=== PATIENT | female | born 1980 | race Hispanic/Latino ===

== ENCOUNTER 2016-11-20 15:55 | Emergency (ER) | payer BC ==
[2016-11-20 17:05] LABS: #Eosinphils 0.4 thou/uL (0.0-0.7); #Lymphocytes 0.4 thou/uL (1.20-3.40); #Monocytes 0.2 thou/uL (0.11-0.59); #Neutrophils 0.8 thou/uL (1.40-6.50); %Basophils 1.6 % (0.0-1.0); %Eosinophils 22.9 % (0.0-10.0); %Lymphocytes 23.6 % (21.0-51.0); %Monocytes 9.9 % (0.0-10.0); Anisocytosis SLIGHT = 6-15 cells (100X) (0-5/hpf); Hematocrit 31.5 % (36.0-47.0); Mean Platelet Volume 9.9 fL (7.4-10.4); Ovalocytes SLIGHT = 2-5 cells (100X) (0-1/hpf); Red Blood Cell (RBC) Count 3.58 mill/uL (4.20-5.40); White Blood Cell (WBC) Count 1.9 thou/uL (4.8-10.8)
[2016-11-20 17:07] LABS: ALT (SGPT) 45 U/L (8-55); AST (SGOT) 112 U/L (5-34); Alkaline Phosphatase 124 U/L (40-150); Anion Gap 12 mmol/L (10-20); BUN (Urea Nitrogen) 12 mg/dL (7.0-18.7); Bilirubin, Total 0.5 mg/dL (0.2-1.2); Calc. Creatinine Clearance 0 mL/min (70-130); Calcium 8.3 mg/dL (7.8-10.44); Carbon Dioxide 24 mmol/L (22-29); Chloride 106 mmol/L (98-107); Estimated GFR-MDRD Greater than 90; Globulin 5.2 g/dL (2.4-3.5); Protein, Total 8.5 g/dL (6.0-8.3)
[2016-11-20] MEDS ORDERED: Meclizine HCl 25 MG TAB ONE (18:25)
--- NOTE | 2016-11-20 20:57 | CT ---
CT BRAIN NONCONTRAST: 11/20/16 HISTORY: 36-year-old female with posttraumatic headache and lightheadedness after head trauma due to fall two days ago. FINDINGS: There is no midline shift or any other mass effect. There is no evidence of acute intracranial hemo rrhage, large cortical infarct, obstructive hydrocephalus, or extraaxial fluid collection. The calv arium is intact. There is a round 1.2 cm moderately dense (higher density than muscle) well circumsc ribed mass in the superficial lobe of the left parotid gland. There is right parietal scalp material with soft tissue density. IMPRESSION: 1. No acute intracranial findings. 2. Acute/subacute, traumatic, right parietal scalp contusion. 3. 12 mm round mass in the left parotid gland. Recommend ENT consultation. damaris [] POS: SHAYE
== END 2016-11-20 19:59 | disposition home or self-care (01) ==
LOC: ERS 15:55
DX: F07.81 Postconcussional syndrome (principal); F41.9 Anxiety disorder, unspecified; Z79.899 Other long term (current) drug therapy
CPT/HCPCS: 36415; 70450; 80053; 85025

== ENCOUNTER 2017-07-07 07:57 | Outpatient (CLI) | payer BC ==
[2017-07-07] MEDS ORDERED: Iopamidol 370 76% 100 ML VIAL ONE (13:33)
== END 2017-07-07 07:58 | disposition home or self-care (01) ==
LOC: BICCT 07:57
PROVIDERS: ATTEND Physician Assistant
DX: K80.20 Calculus of gallbladder without cholecystitis without obstruction (principal); K76.0 Fatty (change of) liver, not elsewhere classified; J98.8 Other specified respiratory disorders; R91.8 Other nonspecific abnormal finding of lung field; R59.0 Localized enlarged lymph nodes
CPT/HCPCS: 71260; 74177

== ENCOUNTER 2017-07-08 12:37 | Inpatient (IN) | payer BC ==
[2017-07-08 13:26] LABS: Hemoglobin 8.3 g/dL (12.0-16.0); Mean Corpuscular Hemoglobin 30.6 pg (27.0-31.0); Mean Corpuscular Volume 92.7 fl (81.0-99.0); RBC Distribution Width 16.6 % (11.5-14.5); Red Blood Cell (RBC) Count 2.71 mill/uL (4.20-5.40); White Blood Cell (WBC) Count 2.1 thou/uL (4.8-10.8)
[2017-07-08 13:28] LABS: INR-International Normal Ratio 1.2; PTT 46.6 SEC (22.9-36.1); Prothrombin Time 15.5 SEC (12.0-14.7)
[2017-07-08] MEDS ORDERED: Ibuprofen 200 MG TAB ONE (13:30)
[2017-07-08 13:42] LABS: ALT (SGPT) 21 U/L (8-55); AST (SGOT) 144 U/L (5-34); Albumin 2.5 g/dL (3.5-5.0); Alkaline Phosphatase 342 U/L (40-150); Anion Gap 11 mmol/L (10-20); BUN (Urea Nitrogen) 14 mg/dL (7.0-18.7); Bilirubin, Total 2.1 mg/dL (0.2-1.2); Calc. Creatinine Clearance 0 mL/min (70-130); Calcium 7.8 mg/dL (7.8-10.44); Carbon Dioxide 22 mmol/L (22-29); Chloride 105 mmol/L (98-107); Estimated GFR-MDRD 81; Globulin 5.8 g/dL (2.4-3.5); Glucose 98 mg/dL (70-105); PLT Morphology Comment Appears Decreased; Platelet Clumps MARKED; Potassium 3.4 mmol/L (3.5-5.1); Protein, Total 8.3 g/dL (6.0-8.3); Sodium 135 mmol/L (136-145)
[2017-07-08 13:43] LABS: Anisocytosis SLIGHT = 6-15 cells (100X) (0-5/hpf); Ovalocytes SLIGHT = 2-5 cells (100X) (0-1/hpf); Polychromasia SLIGHT = 2-3 cells (100X) (0-2/hpf)
[2017-07-08 13:44] LABS: #Lymphocytes 0.3 thou/uL (1.20-3.40); #Monocytes 0.1 thou/uL (0.11-0.59); #Neutrophils 1.7 thou/uL (1.40-6.50); %Basophils 0.9 % (0.0-1.0); %Eosinophils 0.6 % (0.0-10.0); %Lymphocytes 11.9 % (21.0-51.0); %Monocytes 4.4 % (0.0-10.0); %Neutrophils 82.3 % (42.0-75.0)
[2017-07-08 13:46] LABS: Troponin I Less than 0.010 ng/mL (< 0.028)
[2017-07-08] MEDS ORDERED: Piperacillin/Tazobactam 4.5 GM VIAL ONE (14:26)
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
--- NOTE | 2017-07-08 15:34 | CON ---
DATE OF CONSULTATION: 07/08/2017 Please note patient is being sent from the office to the ER for admission. She will be seen by Dr. Roxy young, Dr. Charles Arias. NASRIN is her primary care physician who apparently is now in the office. She has no admitting privileges. Her name is Ronna Edmonds. Patient is a 37-year-old life-long nonsmoker who was seen in the ER after CT imaging studies shows mu ltiple lung masses. Patient comes to the office. She is clearly cachectic, weak, who states that since February she has h ad a cough which was basically nonproductive. She did receive some antibiotics by her primary care tressa guevara, but because of 60-pound weight loss, she underwent CT imaging studies of her chest and abdo men. Multiple abnormalities were noted. Particularly she was found to have multiple lung masses, the larg est one being in the left upper lung and the left lower lung. She denies any hemoptysis, fever or chills. No prior history of TB or pneumonia, but she does have history of asthma from time to time, though sh e takes no medication. In fact, she is presently taking no specific medication. She had extensive lab work done which shows potassium was 3. AST was 144. Bilirubin is 1.6, albumin is 2.7. TSH is 6.8 and she is severely pancytopenic. Platelets were unable to assess because there was clumping going on, but her hemoglobin and hematocrit is 8.4 and 25. White count is 1.5. ALLERGIES: None. PAST SURGICAL HISTORY: None to speak of. 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 She is , has two chi ldren. No alcohol or tobacco abuse. REVIEW OF SYSTEMS: Unremarkable. PHYSICAL EXAMINATION: VITAL SIGNS: Blood pressure 80/60, pulse was 80, sats 93%, . GENERAL: She is cachectic. She is jaundiced. There is no obvious adenopathy. There is no clubbing , no edema. CHEST: Decreased breath sounds, no wheezing or crackles. CARDIAC: Normal S1, S2, no gallops. ABDOMEN: Soft. IMPRESSION: 1. Multiple lung nodules suggestive of metastatic disease. 2. Nonspecific lymphadenopathy in the hilar area, mediastinum, jessica hepatis. 3. Cholelithiasis. 4. Abnormal liver profile. 5. Mild hypothyroidism. 6. Mild weight loss. 7. Severe Pancytopenia. I am concerned about the pancytopenia, hypertension. Before we do any diagnostic study, she needs to be hospitalized and stabilized. Discussed with Dr. Arias who states that he is not going to admit her and that [facility] should be her her primary care doctor as per her recommendation. She will be sent to the ER and admitted. Appropriate lab will be done. Further disposition thereafter.
[2017-07-08 15:36] LABS: CRP (Inflammatory) 3.61 mg/dL (= or < 0.5); Magnesium 1.9 mg/dL (1.6-2.6); Phosphorus 3.4 mg/dL (2.3-4.7)
[2017-07-08 16:41] LABS: HBCM Index 0.18 S/CO (0-0.79); HBSAg Index 0.22 S/CO (0-0.99); Hep A IgM AB Non-Reactive (NonReactive); Hep A IgM S/CO 0.13 S/CO (0-0.79); Hep B Surf Ag Non-Reactive S/CO (NonReactive); Hep C IgG Ab Non-Reactive (NonReactive); Hep C Index 0.65 S/CO (0-0.79); Hepatitis B Core IGM Abs Non-Reactive (NonReactive)
[2017-07-08] MEDS ORDERED: Eucerin (Mineral Oil/Petrolatum,White) 30 gm Jar TOP PRN (17:20)
[2017-07-08] MEDS ORDERED: Chloraseptic Spray 180 ml Bottle PO PRN (17:20)
[2017-07-08] MEDS ORDERED: Diabetic Tussin 200 MG/10 ML UDCUP PO PRN (17:20)
[2017-07-08] MEDS ORDERED: Sodium Chloride 0.65% Nasal 44 ML BOT EA NARE PRN (17:20)
[2017-07-08] MEDS ORDERED: Albuterol Sulfate 2.5 mg/3 ml Neb NEB PRN (17:20)
[2017-07-08] MEDS ORDERED: Milk Of Magnesia 30 ML UDCUP PO PRN (17:20)
[2017-07-08] MEDS ORDERED: Loratadine 10 MG TAB PO PRN (17:20)
[2017-07-08] MEDS ORDERED: Mag-Al 1200 mg/1200 mg/30 ML UDCUP PO PRN (17:20)
[2017-07-08] MEDS ORDERED: Senokot 8.6 MG TAB PO PRN (17:20)
[2017-07-08] MEDS ORDERED: Artificial Tear Sol 15 ML BOT EA EYE PRN (17:38)
[2017-07-08 18:33] LABS: HIV 1/2 INDEX 571.73 S/CO (<1.00)
[2017-07-08] MEDS: 1/2 NS w/KCL 20 mEq 1,000 ML IV SCH (19:14)
[2017-07-08] MEDS: Piperacillin/Tazobactam 3.375 GM in Sodium Chloride 0.9% 100 ML IVPB SCH (22:00)
[2017-07-08] MEDS: Famotidine 20 MG TAB PO SCH (22:00)
[2017-07-08] MEDS ORDERED: Sodium Chloride 0.9% 1,000 ML IV PRN (22:42)
[2017-07-08] MEDS ORDERED: Sodium Chloride 0.9% 1,000 ML IV SCH (22:45)
[2017-07-09] MEDS ORDERED: Vancomycin HCl 500 MG in Sodium Chloride 0.9% 100 ML IVPB SCH (01:00)
[2017-07-09] MEDS ORDERED: Albumin 25% 25 GM/100 ML BOT IVPB SCH (01:00)
[2017-07-09] MEDS: 1/2 NS w/KCL 20 mEq 1,000 ML IV SCH ×3 (02:11→19:54)
[2017-07-09 02:56] LABS: Bilirubin Negative (Negative); Blood, Urine Trace (Negative); Clarity CLEAR (Clear); Glucose, Urine (Dipstick) Negative (Negative); Leukocyte Moderate (Negative); Nitrite Negative (Negative); Protein, Urine (Dipstick) Negative (Neg-Trace); Specific Gravity, Urine 1.007 (1.002-1.036); Urobilinogen 0.2 mg/dL (0.2-1.0)
[2017-07-09 02:58] LABS: Bacteria/HPF None Seen HPF (None Seen); Hyaline Casts/LPF 0-3 HYALINE CAST LPF (0-3 Hyaline); Pathc Cast-AUWi Flag 0.14 (0-2.49); RBC/HPF 0-3 HPF (0-3); Squamous Epithelial 0-3 HPF (0-3)
[2017-07-09 04:24] LABS: ALT (SGPT) 13 U/L (8-55); AST (SGOT) 90 U/L (5-34); Albumin 2.3 g/dL (3.5-5.0); Alkaline Phosphatase 232 U/L (40-150); Anion Gap 10 mmol/L (10-20); BUN (Urea Nitrogen) 9 mg/dL (7.0-18.7); Bilirubin, Total 2.1 mg/dL (0.2-1.2); Calc. Creatinine Clearance 96 mL/min (70-130); Calcium 6.8 mg/dL (7.8-10.44); Carbon Dioxide 16 mmol/L (22-29); Chloride 118 mmol/L (98-107); Estimated GFR-MDRD Greater than 90; Globulin 4.3 g/dL (2.4-3.5); Glucose 75 mg/dL (70-105); Potassium 3.1 mmol/L (3.5-5.1); Protein, Total 6.6 g/dL (6.0-8.3); Sodium 141 mmol/L (136-145)
[2017-07-09 04:43] LABS: #Lymphocytes 0.3 thou/uL (1.20-3.40); #Monocytes 0.1 thou/uL (0.11-0.59); %Lymphocytes 21.1 % (21.0-51.0); %Monocytes 4.6 % (0.0-10.0); %Neutrophils 73.2 % (42.0-75.0); Hemoglobin 7.4 g/dL (12.0-16.0); Mean Corpuscular HGB CONC 32.2 g/dL (32.0-36.0); Mean Corpuscular Hemoglobin 30.7 pg (27.0-31.0); Mean Corpuscular Volume 95.2 fl (81.0-99.0); RBC Distribution Width 16.8 % (11.5-14.5); White Blood Cell (WBC) Count 1.3 thou/uL (4.8-10.8)
[2017-07-09] MEDS: Piperacillin/Tazobactam 3.375 GM in Sodium Chloride 0.9% 100 ML IVPB SCH ×3 (05:29→13:40)
[2017-07-09] MEDS: Ondansetron ODT 4 MG TAB PO PRN (05:29)
[2017-07-09 06:59] LABS: Anisocytosis SLIGHT = 6-15 cells (100X) (0-5/hpf); Bite Cells SLIGHT = 2-5 cells (100X) (0-1/hpf); Elliptocytes SLIGHT = 2-5 cells (100X) (0-1/hpf); MDiff Complete? YES; Mean Platelet Volume 15.2 fL (7.4-10.4); Ovalocytes SLIGHT = 2-5 cells (100X) (0-1/hpf); PLT Morphology Comment PLT clumps seen-LOW; Platelet Clumps SLIGHT; Platelet Count 12 thou/uL (130-400); Polychromasia SLIGHT = 2-3 cells (100X) (0-2/hpf); Schistocytes SLIGHT = 2-5 cells (100X) (0-1/hpf)
[2017-07-09] MEDS: Famotidine 20 MG TAB PO SCH ×2 (08:42→21:37)
[2017-07-09] MEDS: Fluconazole 100 MG TAB PO SCH (08:43)
[2017-07-09] MEDS: Saccharomyces boulardii 250 MG CAP PO SCH (08:43)
--- NOTE | 2017-07-09 11:04 | PDOC.PN ---
- Subjective Encounter Start Date: 07/09/17 Encounter Start Time: 08:40 -: old records requested/rev Patient seen and examined for pulmonary nodules, still has cough. she denies any injection drug abuse, or blood transfusion. No overnight events - Objective Resuscitation Status: Resuscitation Status FULL:Full Resuscitation MAR Reviewed: Yes Vital Signs & Weight: Vital Signs (12 hours) Temp Pulse Resp BP Pulse Ox 07/09/17 07:39 98.5 F 87 18 92/57 L 99 07/09/17 03:32 98.2 F 82 12 89/53 L 99 07/08/17 23:37 98.1 F 74 12 82/50 L 100 Weight Weight 120 lb 14.4 oz I&O: 07/08/17 07/09/17 07/10/17 06:59 06:59 06:59 Intake Total 1539 Output Total 600 Balance 939 Result Diagrams: 07/09/17 04:02 07/09/17 04:02 Radiology Reviewed by me: Yes Phys Exam - Physical Examination Constitutional: NAD HEENT: PERRLA, moist MMs, sclera anicteric pallor+ Neck: no nodes, no JVD, supple coarse sound+ Cardiovascular: RRR, no significant murmur, no rub Gastrointestinal: soft, non-tender, no distention, positive bowel sounds Musculoskeletal: no edema, pulses present Neurological: non-focal, normal sensation, moves all 4 limbs Lymphatic: no nodes Psychiatric: normal affect, A&O x 3 Skin: no rash, normal turgor Dx/Plan (1) Abnormal LFTs Code(s): R94.5 - ABNORMAL RESULTS OF LIVER FUNCTION STUDIES Status: Acute (2) Excessive weight loss Code(s): R63.4 - ABNORMAL WEIGHT LOSS Status: Acute (3) HIV (human immunodeficiency virus infection) Status: Acute (4) Hypoalbuminemia due to protein-calorie malnutrition Code(s): E46 - UNSPECIFIED PROTEIN-CALORIE MALNUTRITION Status: Acute (5) Hypokalemia Code(s): E87.6 - HYPOKALEMIA Status: Acute (6) Hypotension Status: Acute (7) Pancytopenia Code(s): D61.818 - OTHER PANCYTOPENIA Status: Acute (8) Pulmonary nodules/lesions, multiple Status: Acute (9) Sepsis with acute organ dysfunction Code(s): A41.9 - SEPSIS, UNSPECIFIED ORGANISM; R65.20 - SEVERE SEPSIS WITHOUT SEPTIC SHOCK Status: Acute (10) Asthma Code(s): J45.909 - UNSPECIFIED ASTHMA, UNCOMPLICATED Status: Chronic - Plan cont current plan of care, continue antibiotics * HIV positive * suspecting fungal infection vs ? nocardia infection * ID consulted * continue current vancomycin, zosyn and levaquin * follow culture * add solumedrol * medication reviewed as below * symptomatic treatment * pulmonary consulted. Review of Systems - Review of Systems Constitutional: weakness. negative: fever, chills, sweats, malaise, other ENT: negative: Ear Pain, Ear Discharge, Nose Pain, Nose Discharge, Nose Congestion, Mouth Pain, Mouth Swelling, Throat Pain, Throat Swelling, Other Respiratory: Cough, Shortness of Breath. negative: Dry, Hemoptysis, SOB with Excertion, Pleuritic Pain, Sputum, Wheezing Cardiovascular: negative: chest pain, palpitations, orthopnea, paroxysmal nocturnal dyspnea, edema, light headedness, other Gastrointestinal: negative: Nausea, Vomiting, Abdominal Pain, Diarrhea, Constipation, Melena, Hematochezia, Other Genitourinary: negative: Dysuria, Frequency, Incontinence, Hematuria, Retention , Other Musculoskeletal: negative: Neck Pain, Shoulder Pain, Arm Pain, Back Pain, Hand Pain, Leg Pain, Foot Pain, Other Skin: negative: Rash, Lesions, Poli, Bruising, Other - Medications/Allergies Allergies/Adverse Reactions: Allergies Allergy/AdvReac Type Severity Reaction Status Date / Time hydrocodone [From Vicodin] Allergy Mild Hives Verified 01/25/17 15:40 Medications: Current Medications Acetaminophen (Tylenol) 650 mg PO Q4H PRN PRN Reason: Headache/Fever or Pain Al Hydroxide/Mg Hydroxide (Maalox) 30 ml PO Q6H PRN PRN Reason: Heartburn or Indigestion Albuterol Sulfate (Ventolin) 2.5 mg NEB [id number] PRN PRN Reason: Wheezing Artificial Tears (Tears Renewed 15ml Bottle) 0 drop EA EYE PRN PRN PRN Reason: Dry Eyes Famotidine (Pepcid) 20 mg PO BID [facility] Last Admin: 07/09/17 08:42 Dose: 20 mg Fluconazole (Diflucan) 100 mg PO DAILY [facility] Stop: 07/19/17 09:01 Last Admin: 07/09/17 08:43 Dose: 100 mg Guaifenesin (Robitussin Sf) 200 mg PO Q4H PRN PRN Reason: Cough Potassium Chloride/Sodium Chloride (1/2 Ns W/Kcl 20 Meq) 1,000 mls @ 125 mls/ hr IV .Q8H [facility] Last Admin: 07/09/17 02:11 Dose: 1,000 mls Piperacillin Sod/Tazobactam (Sod 3.375 gm/ Sodium Chloride) 100 mls @ 200 mls/ hr IVPB 0200,0800,1400,2000 [facility] Last Admin: 07/09/17 08:42 Dose: 100 mls Loperamide HCl (Imodium) 2 mg PO PRN PRN PRN Reason: Diarrhea/Loose Stools Loratadine (Claritin) 10 mg PO DAILYPRN PRN PRN Reason: Sinus Symptoms Magnesium Hydroxide (Milk Of Magnesium) 30 ml PO DAILYPRN PRN PRN Reason: Constipation Methylprednisolone Sodium Succinate (Solu-Medrol) 20 mg IVP Q8HR [facility] Mineral Oil/White Petrolatum (Eucerin Cream) 0 gm TOP BIDPRN PRN PRN Reason: Dry Skin Miscellaneous Medication (Pharmacy To Dose) 1 each IVPB ONE PRN PRN Reason: Pharmacy to dose Stop: 08/07/17 17:21 Ondansetron HCl (Zofran Odt) 4 mg PO Q6H PRN PRN Reason: Nausea/Vomiting Last Admin: 07/09/17 05:29 Dose: 4 mg Ondansetron HCl (Zofran) 4 mg IVP Q6H PRN PRN Reason: Nausea/Vomiting Phenol (Chloraseptic [place] 180 Ml Bot) 0 ml PO PRN PRN PRN Reason: Sore Throat Saccharomyces Boulardii (Florastor) 250 mg PO DAILY [facility] Last Admin: 07/09/17 08:43 Dose: 250 mg Senna (Senokot) 2 tab PO HSPRN PRN PRN Reason: Constipation Sodium Chloride ([place] Nasal [place] 0.65%) 0 ml EA NARE QIDPRN PRN PRN Reason: Nasal Congestion Zolpidem Tartrate (Ambien) 5 mg PO HSPRN PRN PRN Reason: Insomnia
[2017-07-09 11:08] LABS: ANA Symphony (Qualitative) Negative (Negative); dsDNA IgG Antibody 3.1 IU/mL (<10 Negative)
[2017-07-09 17:01] LABS: HIV (1/2) Antibody/Antigen Reflxed Confirmation (NonReactive)
--- NOTE | 2017-07-09 18:40 | PRG ---
DATE OF SERVICE: 07/09/2017 SUBJECTIVE: This morning, awake, alert and responsive. She says she is weak. OBJECTIVE: VITAL SIGNS: Blood pressure 92/57, sats are 98% on room air, respiration rate 18, temperature 98. HEENT: Mouth reveals extensive thrush. CHEST: Chest reveals decreased breath sounds without any wheezing. CARDIAC: Normal S1, S2, no gallops. ABDOMEN: Soft, no masses. LABORATORY DATA:pancytopoena, white count 1.3, H&H is 7 and 22. Electrolytes are normal. Potassium is 3.1. Albumin is low. Her HIV was high. IMPRESSION AND PLAN: 1. Severe pancytopenia from bone marrow suppression from HIV. 2. No evidence of any sepsis. 3. Multiple lung nodules, etiology unclear. She is immunocompromised, could be some kind of infectious process. If clearly she is afebrile, I will deescalate antibiotics, particularly vancomycin and Levaquin. Continue Zosyn. Await cultures. Await input from Infectious Disease. We will follow while in the hospital. KHRIS
[2017-07-09 19:04] LABS: Syphilis Antibody Nonreactive (Nonreactive)
--- NOTE | 2017-07-09 19:44 | CON ---
DATE OF CONSULTATION: 07/09/2017 REASON FOR CONSULTATION: Lung nodules. HISTORY OF PRESENT ILLNESS: Ms. Maldonado is a 37-year-old female who over the last several months has had general malaise, poor appetite with a 60- pound weight loss. She was seen by her primary care physician and had a CT scan of her chest, abdomen and pelvis. There were multiple left pulmonary nodules. She had a right hilar mediastinum, jessica hepatis, axillary inguinal and upper retroperitoneal lymphadenopathy. She saw Dr. Otto yesterday in the office. She was cachectic and weak and hypotensive. She was sent to the emergency room for evaluation. In the emergency room, her WBCs were 2.1, her hemoglobin was 8.3 and she had platelet clumping. There are 82% neutrophils and 12% lymphocytes. She had an CHAUNCEY screen done, which was negative. Her hepatitis screen was negative, but her HIV was positive. She was placed on IV fluids and antibiotics. She had elevated bilirubin, AST and alkaline phosphatase. The patient has no significant medical history. Denies high risk behavior. She denies any hemoptysis, hematuria, melena or hematochezia. She does admit to easy bruising. She has had intermittent fevers over the last several weeks with 101.2 temperature yesterday. PAST MEDICAL HISTORY: None. PAST SURGICAL HISTORY: x2, tonsillectomy. ALLERGIES: HYDROCODONE. HOME MEDICATIONS: None. FAMILY HISTORY: No history of cancer or blood disorders. SOCIAL HISTORY: Single, 2 kids. No smoking, alcohol or illicit drug use. REVIEW OF SYSTEMS: Twelve-point review of systems is negative except for what is noted in HPI. PHYSICAL EXAMINATION: VITAL SIGNS: Temperature is 98.5, pulse is 80, respiratory rate 18, BP is 92/ 57. She is 99% on room air. GENERAL: This is an ill-appearing female, in no acute distress. HEENT: Normocephalic, atraumatic. Pupils equal and reactive to light. NECK: Supple. CARDIOVASCULAR: Regular rate and rhythm. LUNGS: Diminished throughout. ABDOMEN: Soft, nontender. Bowel sounds are positive. EXTREMITIES: No clubbing, cyanosis or edema. SKIN: No rash. HEMATOLOGIC: No petechia or purpura. NEUROLOGICAL: Nonfocal. PSYCH: The patient is alert and oriented and appropriate. PERTINENT LABORATORY AND X-RAYS: Current WBCs are 1.3, hemoglobin 7.4, hematocrit 22.8, platelet count is 12,000, 73% neutrophils, 21% lymphocytes. PT is 15.5, INR is 1.2, PTT is 46.6. Sodium is 141, potassium 3.1, chloride 118 , CO2 16, BUN is 9, creatinine 0.68, calcium is 6.8. Lactic acid is 1.5, total bilirubin is 2.1, AST is 90, ALT 13, alkaline phosphatase is 232. Ammonia 16. LDH is 360. Troponin is negative. Serum total protein is 6.6, albumin 2.3, globulin 4.3, cortisol is 8.7. Urine is negative for bacteria. CHAUNCEY and thyroid are negative. Hepatitis negative. HIV antigen is positive. ASSESSMENT: 1. Pancytopenia with platelet clumping. 2. Newly diagnosed human immunodeficiency virus. 3. Lung nodules with lymphadenopathy, worrisome for lymphoma. DISCUSSION: The patient needs a bone marrow biopsy to rule out lymphoma and any infiltrative disorder. This has been ordered and will be done in the morning. She will be transfused platelets today and a CBC will be monitored daily. This case has been discussed with Dr. Sy and Dr. Farmer. We will follow her hospital course remotely. Thank you for the consult. KHRIS
--- NOTE | 2017-07-09 21:19 | CON ---
DATE OF CONSULTATION: 07/09/2017 REASON FOR CONSULTATION: Newly identified HIV positive status with chronic illness. HISTORY OF PRESENT ILLNESS: A 37-year-old who lives in [place] her whole life and for the past few months, at least since March, she has noticed progressively worsening weight loss, anorexia, hair loss, a chronic cough, some dyspnea and change in the skin. She saw her personal physician and a few tests were done. She did not get better, but did not go back to her physician and eventually was referred to a space sciences director, Dr. Otto recently. CT was done, which showed multiple pulmonary masses and she was admitted for management. She has alopecia. No visual symptoms, some sore throat, no odynophagia, some dyspnea, still a little bit of cough intermittently, some chest pain, no sputum production, no abdominal pain, no genitourinary symptoms, no joint symptoms or skin disorder except for there is dryness and flakiness of the skin. PAST MEDICAL HISTORY: What she describes as asthma, but this is probably the disease that she has now. It is probably related to the lung process rather than true asthma. PAST SURGICAL HISTORY: She had a x2, tonsillectomy and adenoidectomy. SOCIAL HISTORY: Used to be . She is and apparently, she reports her previous and she has not seen him in 7-8 years. Never a smoker. 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 FAMILY HISTORY: Hypertension. PHYSICAL EXAMINATION: VITAL SIGNS: T-max 98.9, blood pressure 92/57, pulse 80, respirations 18, O2 saturation 99%. GENERAL: Appears emaciated. She is awake, oriented. Alopecia is noted, sort of a diffuse alopecia and dry skin and some seborrheic dermatitis in the facial area. HEENT: She has normal sclerae. Pale conjunctivae. Pupils are equal and reactive. Nasal passages and ear exam normal. 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 No thrush noted. NECK: Supple. No lymphadenopathy noted LUNGS: Symmetric air entry. HEART: S1, S2, regular rate without murmurs. ABDOMEN: Soft. Question of hepatosplenomegaly. EXTREMITIES: No joint inflammatory process. No edema. Pulses 1+ in dorsalis pedis. NEUROLOGIC: Plantar responses are flexure. Awake, oriented, follows commands. LABORATORY DATA: White cell count is 2.1 and 1.3, hemoglobin 8.3 and 7.4, MCV 95, platelets down to 12,000 and 82% neutrophils. Sodium 135, creatinine 0.79, bilirubin 2.1, AST 144, ALT 221, alkaline phosphatase 342, albumin 2.5. CRP 3.61. Urinalysis with 7-10 WBCs. CHAUNCEY negative serology. Hepatitis C nonreactive. HIV pending reflex confirmation. Blood cultures, no growth. Urine culture, no growth. CT of chest from elsewhere, which shows bilateral lung nodules in the hilar area as well. ASSESSMENT: Newly identified human immunodeficiency virus infection, progressive weight loss around 60 pounds, lung nodules, pancytopenia, severe thrombocytopenia, abnormal liver function tests. DISCUSSION: Differential diagnosis includes opportunistic infections including Nocardiosis, Rhodococcus, Mycobacterium tuberculosis, Histoplasmosis, Cryptococcal infection or malignancy such as B-cell lymphoma. Although not the cause of the mass lesions,Pneumocystis may be present as well in addition to the above. She seems to be severely immunosuppressed and CD4 cell count is likely to be less than 100. We will check a CD4 cell count, viral load if not done yet. HIV Genotype, Cryptococcus antigen, Histoplasma antigen in urine, CMV, DNA, PCR, Fungitell assay and bone marrow aspirate for special stains, cultures and flow cytometry. May need a biopsy of some of the areas in the lung if we cannot achieve a diagnosis. If her crypto antigen is positive, she will need a spinal tap. Check RPR as well in addition to the above assays. MTDD
[2017-07-09] MEDS ORDERED: Sterile Water 10 ML ONE (21:36)
[2017-07-09] MEDS: Sulfameth/Trimethoprim DS 800-160mg TAB PO SCH (21:38)
[2017-07-10] MEDS: 1/2 NS w/KCL 20 mEq 1,000 ML IV SCH ×2 (04:00→15:45)
[2017-07-10] MEDS: Acetaminophen 325 MG TAB PO PRN (06:14)
[2017-07-10 08:11] LABS: #Lymphocytes 0.3 thou/uL (1.20-3.40); #Monocytes 0.2 thou/uL (0.11-0.59); #Neutrophils 0.9 thou/uL (1.40-6.50); %Eosinophils 0.5 % (0.0-10.0); %Lymphocytes 22.3 % (21.0-51.0); %Monocytes 11.7 % (0.0-10.0); %Neutrophils 65.5 % (42.0-75.0); Hemoglobin 7.3 g/dL (12.0-16.0); Mean Corpuscular HGB CONC 32.2 g/dL (32.0-36.0); Mean Corpuscular Hemoglobin 30.2 pg (27.0-31.0); Mean Corpuscular Volume 93.6 fl (81.0-99.0); Mean Platelet Volume 16.2 fL (7.4-10.4); Platelet Count 15 thou/uL (130-400); RBC Distribution Width 17.1 % (11.5-14.5); Red Blood Cell (RBC) Count 2.42 mill/uL (4.20-5.40); White Blood Cell (WBC) Count 1.4 thou/uL (4.8-10.8)
[2017-07-10 08:24] LABS: ALT (SGPT) 15 U/L (8-55); AST (SGOT) 87 U/L (5-34); Albumin 2.3 g/dL (3.5-5.0); Alkaline Phosphatase 218 U/L (40-150); Anion Gap 12 mmol/L (10-20); BUN (Urea Nitrogen) 9 mg/dL (7.0-18.7); Bilirubin, Total 1.8 mg/dL (0.2-1.2); Calc. Creatinine Clearance 100 mL/min (70-130); Carbon Dioxide 16 mmol/L (22-29); Chloride 115 mmol/L (98-107); Estimated GFR-MDRD Greater than 90; Globulin 4.1 g/dL (2.4-3.5); Glucose 172 mg/dL (70-105); Potassium 4.1 mmol/L (3.5-5.1); Protein, Total 6.4 g/dL (6.0-8.3); Sodium 139 mmol/L (136-145)
[2017-07-10] MEDS: Ondansetron HCl/PF 4 MG/2 ML Vial IVP PRN (08:59)
[2017-07-10] MEDS: Fluconazole 100 MG TAB PO SCH (09:04)
[2017-07-10] MEDS: Famotidine 20 MG TAB PO SCH ×2 (09:04→21:42)
[2017-07-10] MEDS: Saccharomyces boulardii 250 MG CAP PO SCH (09:04)
[2017-07-10] MEDS: Sulfameth/Trimethoprim DS 800-160mg TAB PO SCH ×3 (09:04→21:42)
--- NOTE | 2017-07-10 09:14 | PDOC.PN ---
- Subjective Encounter Start Date: 07/10/17 Encounter Start Time: 06:30 Patient seen and examined for HIV. c/o abdominal pain. No overnight events - Objective Resuscitation Status: Resuscitation Status FULL:Full Resuscitation MAR Reviewed: Yes Vital Signs & Weight: Vital Signs (12 hours) Temp Pulse Resp BP Pulse Ox 07/10/17 08:00 97.6 F 66 18 104/76 98 07/10/17 00:00 98.1 F 78 16 100/71 100 Weight Admit Weight 120 lb 14.4 oz Weight 118 lb 6.917 oz I&O: 07/09/17 07/10/17 07/11/17 06:59 06:59 06:59 Intake Total 1539 2030 Output Total 600 Balance 939 2030 Result Diagrams: 07/10/17 07:29 07/10/17 07:29 Phys Exam - Physical Examination Constitutional: NAD HEENT: PERRLA, moist MMs, sclera anicteric Neck: no nodes, no JVD, supple Respiratory: no wheezing, no rhonchi coarse sound bilateral Cardiovascular: RRR, no significant murmur, no rub Gastrointestinal: soft, no distention, positive bowel sounds diffuse soreness Musculoskeletal: no edema, pulses present Neurological: non-focal, normal sensation, moves all 4 limbs Lymphatic: no nodes Psychiatric: normal affect, A&O x 3 Skin: no rash, normal turgor Dx/Plan (1) Sepsis with acute organ dysfunction Code(s): A41.9 - SEPSIS, UNSPECIFIED ORGANISM; R65.20 - SEVERE SEPSIS WITHOUT SEPTIC SHOCK Status: Acute Comment: on admission, now controlled (2) Pulmonary nodules/lesions, multiple Status: Acute Comment: DD Tb, nocardiosis, lymphoma, fungal infection, alice unlikely (3) HIV (human immunodeficiency virus infection) Status: Acute Comment: new infection, pt knows diagnosis (4) Abnormal LFTs Code(s): R94.5 - ABNORMAL RESULTS OF LIVER FUNCTION STUDIES Status: Acute (5) Excessive weight loss Code(s): R63.4 - ABNORMAL WEIGHT LOSS Status: Acute (6) Hypoalbuminemia due to protein-calorie malnutrition Code(s): E46 - UNSPECIFIED PROTEIN-CALORIE MALNUTRITION Status: Acute (7) Hypokalemia Code(s): E87.6 - HYPOKALEMIA Status: Acute (8) Hypotension Status: Resolved (9) Pancytopenia Code(s): D61.818 - OTHER PANCYTOPENIA Status: Acute (10) Asthma Code(s): J45.909 - UNSPECIFIED ASTHMA, UNCOMPLICATED Status: Chronic - Plan cont current plan of care, plan discussed w/ family, continue antibiotics * continue diflucan and bactrim as per ID * bone marrow biopsy pending * ID, pulmonary and hematology following * medication reviewed as below * symptomatic treatment * per pt request discussed with mother * will get CT abdomen * add fentanyl for pain control Review of Systems - Review of Systems Constitutional: negative: fever, chills, sweats, weakness, malaise, other Eyes: negative: Pain, Vision Change, Conjunctivae Inflammation, Eyelid Inflammation, Redness, Other ENT: negative: Ear Pain, Ear Discharge, Nose Pain, Nose Discharge, Nose Congestion, Mouth Pain, Mouth Swelling, Throat Pain, Throat Swelling, Other Respiratory: Cough, Dry. negative: Shortness of Breath, Hemoptysis, SOB with Excertion, Pleuritic Pain, Sputum, Wheezing Cardiovascular: negative: chest pain, palpitations, orthopnea, paroxysmal nocturnal dyspnea, edema, light headedness, other Gastrointestinal: Abdominal Pain. negative: Nausea, Vomiting, Diarrhea, Constipation, Melena, Hematochezia, Other Genitourinary: negative: Dysuria, Frequency, Incontinence, Hematuria, Retention , Other Musculoskeletal: negative: Neck Pain, Shoulder Pain, Arm Pain, Back Pain, Hand Pain, Leg Pain, Foot Pain, Other Skin: negative: Rash, Lesions, Poli, Bruising, Other - Medications/Allergies Allergies/Adverse Reactions: Allergies Allergy/AdvReac Type Severity Reaction Status Date / Time hydrocodone [From Vicodin] Allergy Mild Hives Verified 01/25/17 15:40 Medications: Current Medications Acetaminophen (Tylenol) 650 mg PO Q4H PRN PRN Reason: Headache/Fever or Pain Last Admin: 07/10/17 06:14 Dose: 650 mg Al Hydroxide/Mg Hydroxide (Maalox) 30 ml PO Q6H PRN PRN Reason: Heartburn or Indigestion Albuterol Sulfate (Ventolin) 2.5 mg NEB [id number] PRN PRN Reason: Wheezing Artificial Tears (Tears Renewed 15ml Bottle) 0 drop EA EYE PRN PRN PRN Reason: Dry Eyes Famotidine (Pepcid) 20 mg PO BID [facility] Last Admin: 07/10/17 09:04 Dose: 20 mg Fluconazole (Diflucan) 100 mg PO DAILY [facility] Stop: 07/19/17 09:01 Last Admin: 07/10/17 09:04 Dose: 100 mg Guaifenesin (Robitussin Sf) 200 mg PO Q4H PRN PRN Reason: Cough Potassium Chloride/Sodium Chloride (1/2 Ns W/Kcl 20 Meq) 1,000 mls @ 75 mls/hr IV .[id number] [facility] Loperamide HCl (Imodium) 2 mg PO PRN PRN PRN Reason: Diarrhea/Loose Stools Loratadine (Claritin) 10 mg PO DAILYPRN PRN PRN Reason: Sinus Symptoms Magnesium Hydroxide (Milk Of Magnesium) 30 ml PO DAILYPRN PRN PRN Reason: Constipation Methylprednisolone Sodium Succinate (Solu-Medrol) 20 mg IVP Q8HR [facility] Last Admin: 07/10/17 06:12 Dose: 20 mg Mineral Oil/White Petrolatum (Eucerin Cream) 0 gm TOP BIDPRN PRN PRN Reason: Dry Skin Ondansetron HCl (Zofran Odt) 4 mg PO Q6H PRN PRN Reason: Nausea/Vomiting Last Admin: 07/09/17 05:29 Dose: 4 mg Ondansetron HCl (Zofran) 4 mg IVP Q6H PRN PRN Reason: Nausea/Vomiting Last Admin: 07/10/17 08:59 Dose: 4 mg Phenol (Chloraseptic [place] 180 Ml Bot) 0 ml PO PRN PRN PRN Reason: Sore Throat Saccharomyces Boulardii (Florastor) 250 mg PO DAILY [facility] Last Admin: 07/10/17 09:04 Dose: 250 mg Senna (Senokot) 2 tab PO HSPRN PRN PRN Reason: Constipation Sodium Chloride ([place] Nasal [place] 0.65%) 0 ml EA NARE QIDPRN PRN PRN Reason: Nasal Congestion Trimethoprim/Sulfamethoxazole (Bactrim Ds) 1 tab PO TID [facility] Last Admin: 07/10/17 09:04 Dose: 1 tab Zolpidem Tartrate (Ambien) 5 mg PO HSPRN PRN PRN Reason: Insomnia
[2017-07-10] MEDS: Fentanyl 100 MCG/2 ML VIAL SLOW IVP PRN ×3 (10:12→21:45)
[2017-07-10 10:14] LABS: HIV 1 Antibody Multi-Spot Positive (Negative); HIV 2 Antibody Multi-Spot Negative (Negative); HIV Multi-spot Interp HIV-1 Positive (.)
[2017-07-10 11:16] LABS: Pregnancy Test - Urine (BHCG) Negative (Negative); Pregu Control Background? CLEAR/WHITE (CLR/WHITE); Pregu Control Bar Appear? YES (CONTROL BAR); Specific Gravity 1.005 (1.002-1.036)
--- NOTE | 2017-07-10 12:14 | CT ---
ABDOMEN AND PELVIC CT SCAN WITH IV CONTRAST: Date: 07/10/17 HISTORY: 37-year-old female with history of abdominal pain, nausea, and vomiting. FINDINGS: There is an approximately 2.5 x 3.3 cm diameter posterior pleural based mass in the left lower chest. Small right pleural effusion. Prominent fatty changes of the liver. Numerous large gallstones within the gallbladder, with the gall stones up to 3.0 cm in size. There is some fairly extensive peripancreatic edema and fat stranding an d fluid, including in the region around the head of the pancreas, body, and tail of the pancreas, neida dence for acute pancreatitis. Spleen and adrenal glands appear unremarkable. No renal calculus or acu te obstruction. Partially visualized appendix appears normal. There is a moderate amount of free f luid in the pelvis. Uterus and adnexa appear unremarkable. IMPRESSION: 1. Evidence for acute pancreatitis with prominent peripancreatic fluid and edema and fat stranding, as well as a moderate amount of free fluid within the pelvis. 2. 2.5 x 3.3 cm diameter pleural based mass in the posterior inferior left chest. 3. Small right pleural effusion. 4. Fatty changes of the liver. 5. Multiple cholelithiasis without overt gallbladder wall thickening or pericholecystic fat strandin g or ductal dilatation. 6. Other findings as above. POS: SHAYE
--- NOTE | 2017-07-10 13:40 | PRG ---
DATE OF SERVICE: 07/10/2017 Remains afebrile. Her vital signs are stable. Blood pressure is normal. Oximetry is 98 on room air . Lab work is essentially unchanged. She is pancytopenic. We are awaiting bone marrow. Bone marrow m ay explain the hematologic abnormalities, but may or may not explain the pulmonary nodules. We will wait for the bone marrow results.
[2017-07-10] MEDS ORDERED: ISOVUE-370 76%-LOCM 1 ML ONE (18:28)
[2017-07-10] MEDS ORDERED: Sterile Water 10 ML ONE (21:38)
[2017-07-10] MEDS: Zolpidem Tartrate 5 MG TAB PO PRN (21:42)
[2017-07-11] MEDS: Fentanyl 100 MCG/2 ML VIAL SLOW IVP PRN ×2 (03:42→18:18)
[2017-07-11] MEDS: Ondansetron HCl/PF 4 MG/2 ML Vial IVP PRN (03:45)
[2017-07-11] MEDS: 1/2 NS w/KCL 20 mEq 1,000 ML IV SCH ×3 (06:15→23:15)
[2017-07-11] MEDS: Sulfameth/Trimethoprim DS 800-160mg TAB PO SCH ×3 (09:24→21:02)
[2017-07-11] MEDS: Fluconazole 100 MG TAB PO SCH (09:24)
[2017-07-11] MEDS: Famotidine 20 MG TAB PO SCH ×2 (09:24→21:02)
[2017-07-11] MEDS: Saccharomyces boulardii 250 MG CAP PO SCH (09:24)
--- NOTE | 2017-07-11 10:46 | PDOC.PN ---
- Subjective Encounter Start Date: 07/11/17 Encounter Start Time: 09:15 Subjective: a bit nauseous, no vomiting -: is trying to eat her breakfast -: no sob - Objective Resuscitation Status: Resuscitation Status FULL:Full Resuscitation MAR Reviewed: Yes Vital Signs & Weight: Vital Signs (12 hours) Temp Pulse Resp BP Pulse Ox 07/11/17 08:00 97.9 F 72 16 07/11/17 07:45 97.7 F 90 18 105/72 99 07/11/17 01:46 98 Weight Admit Weight 120 lb 14.4 oz Weight 118 lb 0.568 oz I&O: 07/10/17 07/11/17 07/12/17 06:59 06:59 06:59 Intake Total 2029 2669 Output Total 800 Balance 2029 1869 Result Diagrams: 07/10/17 07:29 07/10/17 07:29 Phys Exam - Physical Examination HEENT: PERRLA, moist MMs Neck: no JVD, supple Respiratory: no wheezing, no rales Cardiovascular: RRR, no significant murmur Gastrointestinal: soft, no distention, positive bowel sounds Musculoskeletal: no edema, pulses present Neurological: non-focal, moves all 4 limbs Psychiatric: normal affect, A&O x 3 Dx/Plan (1) Acute pancreatitis Code(s): K85.90 - ACUTE PANCREATITIS WITHOUT NECROSIS OR INFECTION, UNSP Status: Acute Qualifiers: Pancreatitis type: biliary (2) Cholelithiasis Code(s): K80.20 - CALCULUS OF GALLBLADDER W/O CHOLECYSTITIS W/O OBSTRUCTION Status: Acute Qualifiers: Cholelithiasis location: gallbladder Cholecystitis presence: without cholecystitis (3) Lung mass Code(s): R91.8 - OTHER NONSPECIFIC ABNORMAL FINDING OF LUNG FIELD Status: Acute (4) Metabolic acidosis Code(s): E87.2 - ACIDOSIS Status: Acute (5) Excessive weight loss Code(s): R63.4 - ABNORMAL WEIGHT LOSS Status: Acute (6) HIV (human immunodeficiency virus infection) Status: Acute Comment: new infection, pt knows diagnosis (7) Hypoalbuminemia due to protein-calorie malnutrition Code(s): E46 - UNSPECIFIED PROTEIN-CALORIE MALNUTRITION Status: Acute (8) Pancytopenia Code(s): D61.818 - OTHER PANCYTOPENIA Status: Acute - Plan for BM biopsy in am -: d/w , platelets are 15 -: is on bactrim, diflucan, solumedrol and 1/2NS with K -: await CD4 count, lipase levels in am -: prognosis guarded * . Review of Systems - Medications/Allergies Allergies/Adverse Reactions: Allergies Allergy/AdvReac Type Severity Reaction Status Date / Time hydrocodone [From Vicodin] Allergy Mild Hives Verified 01/25/17 15:40 Medications: Current Medications Acetaminophen (Tylenol) 650 mg PO Q4H PRN PRN Reason: Headache/Fever or Pain Last Admin: 07/10/17 06:14 Dose: 650 mg Al Hydroxide/Mg Hydroxide (Maalox) 30 ml PO Q6H PRN PRN Reason: Heartburn or Indigestion Albuterol Sulfate (Ventolin) 2.5 mg NEB [id number] PRN PRN Reason: Wheezing Artificial Tears (Tears Renewed 15ml Bottle) 0 drop EA EYE PRN PRN PRN Reason: Dry Eyes Famotidine (Pepcid) 20 mg PO BID [facility] Last Admin: 07/11/17 09:24 Dose: 20 mg Fentanyl (Sublimaze) 25 mcg SLOW IVP Q4H PRN PRN Reason: Pain Last Admin: 07/11/17 03:42 Dose: 25 mcg Fluconazole (Diflucan) 100 mg PO DAILY [facility] Stop: 07/19/17 09:01 Last Admin: 07/11/17 09:24 Dose: 100 mg Guaifenesin (Robitussin Sf) 200 mg PO Q4H PRN PRN Reason: Cough Potassium Chloride/Sodium Chloride (1/2 Ns W/Kcl 20 Meq) 1,000 mls @ 75 mls/hr IV .[id number] [facility] Last Admin: 07/11/17 06:15 Dose: 1,000 mls Loperamide HCl (Imodium) 2 mg PO PRN PRN PRN Reason: Diarrhea/Loose Stools Loratadine (Claritin) 10 mg PO DAILYPRN PRN PRN Reason: Sinus Symptoms Magnesium Hydroxide (Milk Of Magnesium) 30 ml PO DAILYPRN PRN PRN Reason: Constipation Methylprednisolone Sodium Succinate (Solu-Medrol) 20 mg IVP Q8HR [facility] Last Admin: 07/11/17 06:41 Dose: 20 mg Mineral Oil/White Petrolatum (Eucerin Cream) 0 gm TOP BIDPRN PRN PRN Reason: Dry Skin Ondansetron HCl (Zofran Odt) 4 mg PO Q6H PRN PRN Reason: Nausea/Vomiting Last Admin: 07/09/17 05:29 Dose: 4 mg Ondansetron HCl (Zofran) 4 mg IVP Q6H PRN PRN Reason: Nausea/Vomiting Last Admin: 07/11/17 03:45 Dose: 4 mg Phenol (Chloraseptic [place] 180 Ml Bot) 0 ml PO PRN PRN PRN Reason: Sore Throat Saccharomyces Boulardii (Florastor) 250 mg PO DAILY [facility] Last Admin: 07/11/17 09:24 Dose: 250 mg Senna (Senokot) 2 tab PO HSPRN PRN PRN Reason: Constipation Sodium Chloride ([place] Nasal [place] 0.65%) 0 ml EA NARE QIDPRN PRN PRN Reason: Nasal Congestion Trimethoprim/Sulfamethoxazole (Bactrim Ds) 1 tab PO TID [facility] Last Admin: 07/11/17 09:24 Dose: 1 tab Zolpidem Tartrate (Ambien) 5 mg PO HSPRN PRN PRN Reason: Insomnia Last Admin: 07/10/17 21:42 Dose: 5 mg
--- NOTE | 2017-07-11 12:29 | PRG ---
DATE OF SERVICE: 07/11/2017 SUBJECTIVE: Ms. Maldonado still has not had a bone marrow biopsy. OBJECTIVE: VITAL SIGNS: She is afebrile, heart rate is 72, respiratory rate 16, oximetry is 99 on room air, blo od pressure 105/72. LUNGS: Clear. HEART: Regular rhythm. ABDOMEN: Soft and nontender. LABORATORY DATA: White count 1.4, hemoglobin 7.3, platelets 15,000. Sodium 139, potassium 4.1, chlo ride 115, bicarbonate 16, BUN 9, creatinine 0.6, glucose 172. Blood cultures are negative. Urine cu lture is negative. Cryptococcal antigen is negative. IMPRESSION: Human immunodeficiency virus positive with multiple pulmonary nodules, pancytopenia, and pancreas inflammation. Disseminated histoplasmosis is a possibility. Lymphoma is a possibility. Biopsy of the bone needs t o be done first, although there may be more than 1 pathological process going on here. She actually looks clinically stable, but hopefully this will be done tomorrow.
--- NOTE | 2017-07-11 13:58 | CON ---
DATE OF CONSULTATION: 07/11/2017 REASON FOR CONSULTATION: Acute pancreatitis. CONSULTING PHYSICIAN: Gricel Azar M.D. HISTORY OF PRESENT ILLNESS: The patient is a 37-year-old female who presented with no significant past medical history complaining of weight loss, hair loss and increased shortness of breath with cough. During the course of this hospitalization, she was diagnosed with HIV as well as multiple pulmonary nodules concerning for possible infection. Also, during the course of this hospitalization, she was diagnosed with pancytopenia that may be as a result of her recent diagnosis of HIV. However, during the course of this hospitalization (she did not present with abdominal pain), she has been having increased midepigastric abdominal pain for the last 2 days. The pain is characterized as a throbbing type pain, will radiate to the right upper quadrant , it is constant and will reach a severity of approximately 5/10. The pain is worse with increased physical activity as well as eating solid foods, better with pain medications. Associated symptoms with her abdominal pain include nausea with nonbloody emesis (intermittent) diarrhea, having approximately 1-2 semi-solid bowel movements per day as well as increased abdominal bloating. Currently, she denies any fevers, chills, vomiting, constipation, dysphagia or odynophagia or GI bleeding. Of note, she does not endorse a history of alcohol, tobacco or illicit drug use nor has she had been recently placed on any medications as an outpatient prior to admission. REVIEW OF SYSTEMS: A 10-category review of systems was obtained with all responses negative except for the pertinent positives as listed in the HPI. PAST MEDICAL HISTORY: HIV, pancytopenia, asthma and recent diagnosis of multiple pulmonary nodules. PAST SURGICAL HISTORY: x2 and tonsillectomy. FAMILY HISTORY: Denies any GI malignancies. SOCIAL HISTORY: Denies any tobacco, alcohol or illicit drug use. OUTPATIENT MEDICATIONS: None. ALLERGIES: HYDROCODONE. PHYSICAL EXAMINATION: VITAL SIGNS: Temperature of 97.6, pulse 80, blood pressure 103/70, respiratory rate 20, satting 96% on room air. GENERAL: The patient is lying in bed, in no acute distress. Alert and oriented x4. NECK: Supple. No JVD noted. CARDIOVASCULAR: Regular rate and rhythm with no discernible murmurs, gallops or rubs. RESPIRATORY: Clear to auscultation bilaterally with no discernible wheezes or rales, although there was some diminished breath sounds in the left lower lobe. ABDOMEN: Normoactive bowel sounds, soft, nondistended. Tenderness to palpation in the midepigastric and periumbilical regions. EXTREMITIES: No cyanosis, clubbing or edema. LABORATORY DATA: CBC with a white blood cell count of 1.4, hemoglobin 7.3, hematocrit 22.6, platelets 15. INR 1.2. Chemistry with a sodium of 139, potassium 4.1, chloride 115, CO2 16, BUN 9, creatinine 0.64, glucose 172, AST 87 , ALT 15, alkaline phosphatase 218, total bilirubin 1.8, lipase 837, albumin 2.3. HIV positive. Acute hepatitis panel negative and urinalysis was consistent with a urinary tract infection. IMAGING DATA: CT of the abdomen and pelvis was obtained on 07/10/2017, which showed a 2.5 x 3.3 cm pleural-based mass in the left lower chest. Numerous gallstones within the gallbladder (measuring up to 3 cm in size) as well as peripancreatic edema around the head, body, and tail of the pancreas consistent with acute pancreatitis. ASSESSMENT AND PLAN: The patient is a 37-year-old female with past medical history of asthma and recent diagnosis of HIV and pancytopenia and multiple pulmonary nodules, presenting with acute pancreatitis. Acute pancreatitis. The patient is presenting with acute onset of midepigastric abdominal pain that radiates to the right and left upper abdomen as well as serologies consistent with an elevated lipase confirming acute pancreatitis. However, she did not have this particular abdominal pain until after she was admitted to the hospital for evaluation, raising the concern for possible iatrogenic or medication-induced pancreatitis. She denies any alcohol or tobacco use which could further contribute to her pancreatitis as well. She is currently tolerating a regular diet with some difficulty with increased pain while on this regimen and has IV fluids running at approximately 75 mL per hour. At this point, the differential for her acute pancreatitis is medication induced ( most likely), hypertriglyceridemia, gallstone pancreatitis (less likely given normal ALT), pancreatic divisum, idiopathic or possible hypercalcemia associated with a paraneoplastic process (much less likely given the current calcium and albumin levels). RECOMMENDATIONS: 1. Would obtain an MRCP for further evaluation of the liver parenchyma as well as the biliary tree for possible gallstone pancreatitis. 2. I will order a lipid panel on the patient for possible hypertriglyceridemia contributing to her pancreatitis. 3. I would recommend avoiding any potentially pancreas toxic medications and consider alternatives for medications already been given (methylprednisolone and Bactrim could potentially cause pancreatitis). 4. We will make the patient n.p.o., give an exacerbation by food to allow for pancreatic rest. 5. Pain control per primary team. 6. We will increase her IV fluids to approximately 150 mL per hour in concordance with treatment of her acute pancreatitis. We will continue to follow. Please call with any additional questions. KHRIS
[2017-07-11] MEDS: Raltegravir Potassium 400 MG TAB PO SCH (21:02)
--- NOTE | 2017-07-12 03:11 | PRG ---
DATE OF SERVICE: 07/11/2017 SUBJECTIVE: Awake, alert. She was started having abdominal pain. CT of the abdomen was done, results are discussed below. She has improved respiratory symptoms with less cough, no dyspnea. No headaches. Abdominal pain is mild to moderate, epigastric area. OBJECTIVE: VITAL SIGNS: The patient has been afebrile, pulse 82, respirations 18, O2 sat 97%, blood pressure 103/70. GENERAL: Chronically ill appearing, but in no acute distress, oriented, alert. HEENT: Ocular movements are conjugate. The oral leukoplakia has cleared and she seems more likely to have been candidiasis all along. NECK: Supple. LUNGS: Clear breath sounds, some mild tenderness in the epigastric area. ABDOMEN: Soft, not distended, no ascites. EXTREMITIES: Moves all extremities equally. LABORATORY DATA: White cell count 1.4, hemoglobin 7.3, MCV 93, platelets 15,000 , normal differential except for lymphocytopenia. Total lymphocyte count 300. Chemistry: Creatinine 0.64, glucose 172, calcium 7.0, bilirubin 1.8, AST 87, alkaline phosphatase 218, albumin 2.3. Lipase was elevated at 837. Cortisol 8.7. CD4 cell count and other assays are pending. Syphilis antibody negative. Hepatitis C nonreactive. The CT of abdomen and pelvis showed evidence suggestive of pancreatitis. There was also multiple cholelithiasis, but no gallbladder wall thickening or other evidence of inflammation along the gallbladder. ASSESSMENT AND DISCUSSION: HIV infection, advanced; CD4 cell count, likely below 100; marked weight loss; lung nodules, which could represent either an opportunistic infection or simple fungal or mycobacterial infection or rhodococcus or nocardia versus lymphoma. She has pancytopenia, which could be secondary to the above, associated pneumocystis infection of the lungs is possible as well, and she has cholelithiasis with evidence of pancreatitis. Pancreatitis in HIV patient is usually secondary to associated gallbladder disease or drug related in the old days with certain antiretroviral agents, cytomegalovirus infection is the possibility as well. Finally, rarely cryptosporidium can be associated with it, pancreatitis associated with alcoholism is another possibility, but that does not seem to be the case here. The patient is supposed to undergo MRCP and it is likely that the gallbladder disease is associated with the pancreatitis. We will start Truvada and Isentress, continue Bactrim and wait on assay results, wait on bone marrow biopsy results, may need biopsy of one of the masses for diagnostic purposes. MTDD
[2017-07-12 05:07] LABS: #Lymphocytes 0.1 thou/uL (1.20-3.40); #Monocytes 0.1 thou/uL (0.11-0.59); %Eosinophils 0.4 % (0.0-10.0); %Lymphocytes 3.5 % (21.0-51.0); %Neutrophils 92.1 % (42.0-75.0); Hemoglobin 6.2 g/dL (12.0-16.0); Mean Corpuscular HGB CONC 32.2 g/dL (32.0-36.0); Mean Corpuscular Hemoglobin 30.1 pg (27.0-31.0); Mean Corpuscular Volume 93.5 fl (81.0-99.0); Mean Platelet Volume 14.5 fL (7.4-10.4); Platelet Count 11 thou/uL (130-400); RBC Distribution Width 17.3 % (11.5-14.5); Red Blood Cell (RBC) Count 2.05 mill/uL (4.20-5.40); White Blood Cell (WBC) Count 3.3 thou/uL (4.8-10.8)
[2017-07-12 05:34] LABS: ALT (SGPT) 26 U/L (8-55); AST (SGOT) 107 U/L (5-34); Albumin 2.2 g/dL (3.5-5.0); Alkaline Phosphatase 165 U/L (40-150); Anion Gap 10 mmol/L (10-20); BUN (Urea Nitrogen) 15 mg/dL (7.0-18.7); Bilirubin, Total 1.3 mg/dL (0.2-1.2); Calc. Creatinine Clearance 89 mL/min (70-130); Calcium 6.6 mg/dL (7.8-10.44); Carbon Dioxide 15 mmol/L (22-29); Chloride 115 mmol/L (98-107); Estimated GFR-MDRD 90; Globulin 3.6 g/dL (2.4-3.5); Glucose 225 mg/dL (70-105); Lipase 747 U/L (8-78); Potassium 4.9 mmol/L (3.5-5.1); Protein, Total 5.8 g/dL (6.0-8.3); Sodium 135 mmol/L (136-145)
[2017-07-12] MEDS: 1/2 NS w/KCL 20 mEq 1,000 ML IV SCH (05:48)
[2017-07-12] MEDS: Fentanyl 100 MCG/2 ML VIAL SLOW IVP PRN ×2 (07:20→20:57)
--- NOTE | 2017-07-12 09:38 | PRG ---
DATE OF SERVICE: 07/12/2017 Today she looks much better. PHYSICAL EXAMINATION: VITAL SIGNS: Blood pressure is 101/72, sats 90% on room air, respirations 18, temperature 97. Except for abdominal pain she denies any other discomfort. In fact, old extensive thrush has pretty much resolved. CHEST: No wheezing or crackles. CARDIAC: Normal S1, S2. ABDOMEN: Soft, no masses. Lab continues to show pancytopenia with severe thrombocytopenia 11,000. H&H is 6 and 19. White coun t 3000. Liver function is elevated. GI was consulted. They think she has got pancreatitis. IMPRESSION: 1. Human immunodeficiency virus. 2. Pancytopenia. 3. Multiple lung masses. 4. Thrush, resolved. PLAN: She was started on antiretroviral which I reviewed her medication by Infectious Disease and [place]. Await bone marrow to see whether she has got opportunistic infection which could account for her lung masses. At this stage because of her severe thrombocytopenia avoid doing any biopsy of the lung masses until she is more stable. I will follow.
[2017-07-12] MEDS ORDERED: Fentanyl 100 MCG/2 ML VIAL ONE (10:28)
[2017-07-12] MEDS ORDERED: Sodium Bicarbonate 2.5 MEQ/5 ML VIAL ONE (10:28)
[2017-07-12] MEDS ORDERED: Midazolam HCl 2 mg/2 ml Vial ONE (10:28)
--- NOTE | 2017-07-12 10:53 | PDOC.PN ---
- Subjective Encounter Start Date: 07/12/17 Encounter Start Time: 10:30 Subjective: no sob, is recieving 6 pack platelets for bone rosenbaum biopsy -: got 1 unit of prbc this am -: mother at bedside - Objective Resuscitation Status: Resuscitation Status FULL:Full Resuscitation MAR Reviewed: Yes Vital Signs & Weight: Vital Signs (12 hours) Temp Pulse Pulse Resp BP BP BP 07/12/17 10:20 98.5 F 71 16 115/81 07/12/17 10:02 98.8 F 80 18 95/60 07/12/17 09:36 98 F 71 18 108/72 07/12/17 07:57 97.8 F 81 18 07/12/17 07:00 97.8 F 81 18 101/72 07/12/17 06:55 97.8 F 81 18 101/72 07/12/17 06:35 97.6 F 85 18 100/72 07/12/17 04:00 97.8 F 81 18 103/73 07/12/17 00:00 97.7 F 75 18 100/66 Pulse Ox 07/12/17 10:20 07/12/17 10:02 07/12/17 09:36 07/12/17 07:57 99 07/12/17 07:00 99 07/12/17 06:55 99 07/12/17 06:35 95 07/12/17 04:00 98 07/12/17 00:00 98 Weight Admit Weight 120 lb 14.4 oz Weight 128 lb I&O: 07/11/17 07/12/17 07/13/17 06:59 06:59 06:59 Intake Total 2670 1600 350 Output Total 800 1000 Balance 1870 600 350 Result Diagrams: 07/12/17 03:55 07/12/17 03:55 Phys Exam - Physical Examination HEENT: PERRLA, moist MMs Neck: no JVD, supple Respiratory: no wheezing, no rales Cardiovascular: RRR, no significant murmur Gastrointestinal: soft, non-tender, positive bowel sounds Musculoskeletal: no edema, pulses present Neurological: non-focal, moves all 4 limbs Psychiatric: A&O x 3 Dx/Plan (1) Acute pancreatitis Code(s): K85.90 - ACUTE PANCREATITIS WITHOUT NECROSIS OR INFECTION, UNSP Status: Acute Qualifiers: Pancreatitis type: biliary (2) Cholelithiasis Code(s): K80.20 - CALCULUS OF GALLBLADDER W/O CHOLECYSTITIS W/O OBSTRUCTION Status: Acute Qualifiers: Cholelithiasis location: gallbladder Cholecystitis presence: without cholecystitis (3) Lung mass Code(s): R91.8 - OTHER NONSPECIFIC ABNORMAL FINDING OF LUNG FIELD Status: Acute (4) Metabolic acidosis Code(s): E87.2 - ACIDOSIS Status: Acute (5) Excessive weight loss Code(s): R63.4 - ABNORMAL WEIGHT LOSS Status: Acute (6) HIV (human immunodeficiency virus infection) Status: Acute Comment: new infection, pt knows diagnosis (7) Hypoalbuminemia due to protein-calorie malnutrition Code(s): E46 - UNSPECIFIED PROTEIN-CALORIE MALNUTRITION Status: Acute (8) Pancytopenia Code(s): D61.818 - OTHER PANCYTOPENIA Status: Acute Comment: severe (9) DIC (disseminated intravascular coagulation) Code(s): D65 - DISSEMINATED INTRAVASCULAR COAGULATION Status: Acute - Plan for bm biopsy today after platelet transfusion -: mrcp to r/o biliary pancreatitis -: prognosis guarded with severe pancytopenia, sepsis, pancreatitis,dic likely -: is on bactrim tid, diflucan, truvada and isentress -: d/w patient and mom at bedside, watch for overload * . Review of Systems - Medications/Allergies Allergies/Adverse Reactions: Allergies Allergy/AdvReac Type Severity Reaction Status Date / Time hydrocodone [From Vicodin] Allergy Mild Hives Verified 01/25/17 15:40 Medications: Current Medications Acetaminophen (Tylenol) 650 mg PO Q4H PRN PRN Reason: Headache/Fever or Pain Last Admin: 07/10/17 06:14 Dose: 650 mg Al Hydroxide/Mg Hydroxide (Maalox) 30 ml PO Q6H PRN PRN Reason: Heartburn or Indigestion Albuterol Sulfate (Ventolin) 2.5 mg NEB [id number] PRN PRN Reason: Wheezing Artificial Tears (Tears Renewed 15ml Bottle) 0 drop EA EYE PRN PRN PRN Reason: Dry Eyes Emtricitabine/Tenofovir (Truvada) 1 tab PO DAILY [facility] Famotidine (Pepcid) 20 mg PO BID [facility] Last Admin: 07/11/17 21:02 Dose: 20 mg Fentanyl (Sublimaze) 25 mcg SLOW IVP Q4H PRN PRN Reason: Pain Last Admin: 07/12/17 07:20 Dose: 25 mcg Fluconazole (Diflucan) 100 mg PO DAILY [facility] Stop: 07/19/17 09:01 Last Admin: 07/11/17 09:24 Dose: 100 mg Guaifenesin (Robitussin Sf) 200 mg PO Q4H PRN PRN Reason: Cough Potassium Chloride/Sodium Chloride (1/2 Ns W/Kcl 20 Meq) 1,000 mls @ 150 mls/ hr IV .Q6H40M [facility] Last Admin: 07/12/17 05:48 Dose: 1,000 mls Loperamide HCl (Imodium) 2 mg PO PRN PRN PRN Reason: Diarrhea/Loose Stools Loratadine (Claritin) 10 mg PO DAILYPRN PRN PRN Reason: Sinus Symptoms Magnesium Hydroxide (Milk Of Magnesium) 30 ml PO DAILYPRN PRN PRN Reason: Constipation Methylprednisolone Sodium Succinate (Solu-Medrol) 20 mg IVP Q8HR [facility] Last Admin: 07/12/17 05:48 Dose: 20 mg Mineral Oil/White Petrolatum (Eucerin Cream) 0 gm TOP BIDPRN PRN PRN Reason: Dry Skin Ondansetron HCl (Zofran Odt) 4 mg PO Q6H PRN PRN Reason: Nausea/Vomiting Last Admin: 07/09/17 05:29 Dose: 4 mg Ondansetron HCl (Zofran) 4 mg IVP Q6H PRN PRN Reason: Nausea/Vomiting Last Admin: 07/11/17 03:45 Dose: 4 mg Phenol (Chloraseptic [place] 180 Ml Bot) 0 ml PO PRN PRN PRN Reason: Sore Throat Raltegravir (Isentress) 400 mg PO BID [facility] Last Admin: 07/11/17 21:02 Dose: 400 mg Saccharomyces Boulardii (Florastor) 250 mg PO DAILY [facility] Last Admin: 07/11/17 09:24 Dose: 250 mg Senna (Senokot) 2 tab PO HSPRN PRN PRN Reason: Constipation Sodium Chloride ([place] Nasal [place] 0.65%) 0 ml EA NARE QIDPRN PRN PRN Reason: Nasal Congestion Sodium Chloride (Flush - Normal Saline) 10 ml IVF Q12HR [facility] Last Admin: 07/12/17 07:25 Dose: 10 ml Sodium Chloride (Flush - Normal Saline) 10 ml IVF PRN PRN PRN Reason: Saline Flush Last Admin: 07/12/17 05:48 Dose: 10 ml Trimethoprim/Sulfamethoxazole (Bactrim Ds) 1 tab PO TID [facility] Last Admin: 07/11/17 21:02 Dose: 1 tab Zolpidem Tartrate (Ambien) 5 mg PO HSPRN PRN PRN Reason: Insomnia Last Admin: 07/10/17 21:42 Dose: 5 mg
[2017-07-12 12:12] LABS: %CD4 (Helper/Inducer) 2.8 % (30.8-58.5); Absolute CD4 6 /uL (359-1519); Lymphocytes/Gated Cell Count 0.2 x10E3/uL (0.7-3.1); Total Lymphocyte 23 % (Not Estab.)
[2017-07-12] MEDS: Sulfameth/Trimethoprim DS 800-160mg TAB PO SCH ×3 (12:16→20:52)
[2017-07-12] MEDS: Famotidine 20 MG TAB PO SCH ×2 (13:26→20:51)
[2017-07-12] MEDS: Saccharomyces boulardii 250 MG CAP PO SCH (13:26)
[2017-07-12] MEDS: Emtricitabine/Tenofovir 200-300 MG TAB PO SCH (13:27)
[2017-07-12] MEDS: Sodium Chloride 0.9% 1,000 ML IV SCH (13:27)
[2017-07-12] MEDS: Fluconazole 100 MG TAB PO SCH (13:27)
[2017-07-12] MEDS: Raltegravir Potassium 400 MG TAB PO SCH ×2 (13:27→20:52)
--- NOTE | 2017-07-12 13:43 | PRG ---
DATE OF SERVICE: 07/11/2017 REASON FOR CONSULTATION: Acute pancreatitis. SUBJECTIVE: The patient states that she is feeling better this morning with lessened mid epigastric abdominal pain and no further episodes of nausea and vomiting. Currently, denies any fevers, chills, vomiting, diarrhea, constipation, dysphagia or odynophagia. OBJECTIVE: VITAL SIGNS: Temperature 97.9, pulse 86, blood pressure 107/57, respiratory rate 18, and satting 98% on room air. GENERAL: The patient is lying in bed in no acute distress. He is alert and oriented x4. CARDIOVASCULAR: Regular rate and rhythm. RESPIRATORY: Clear to auscultation bilaterally. ABDOMEN: Normoactive bowel sounds, soft, nondistended. Tenderness to palpation in the midepigastric and periumbilical regions. EXTREMITIES: No cyanosis, clubbing or edema. LABORATORY DATA: CBC with a white blood cell count of 3.3, hemoglobin 6.2, hematocrit 19.2, platelet s 11. Chemistry with a sodium of 135, potassium 4.9, chloride 115, CO2 15, BUN 15, creatinine 0.72, glucose 225, AST 107, ALT 27, alkaline phosphatase 165, total bilirubin 1.3. IMAGING DATA: No current GI imaging is available for review. ASSESSMENT AND PLAN: The patient is a 37-year-old female with past medical history of asthm a, recently diagnosed with HIV, now presenting with pancytopenia, multiple pulmonary nodules and acut e pancreatitis. Acute pancreatitis. The patient is presenting with acute onset of midepigastric abdominal pain during this hospital admis [place] (she did not present with this abdominal pain) with imaging and elevated lipase consistent with acute pancreatitis. At this point, the etiology for her acute pancreatitis could be multifactorial i n that it could be medication induced (Bactrim and methylprednisolone could generate this), gallstone pancreatitis (less likely due to normal ALT), infection (HIV and possible opportunistic infection co uld generate pancreatitis), idiopathic pancreatitis or paraneoplastic process. RECOMMENDATIONS: 1. We would follow up on MRCP for further evaluation of the liver parenchyma as well as biliary tree for possible gallstone pancreatitis. 2. We will follow up on the liver profile for possible hypertriglyceridemia. 3. I would recommend avoiding any potentially pancreas toxic medications. 4. We would continue n.p.o. status along with infusion of IV fluids, although being careful for poss ible volume overload, especially with infusion of platelets and PRBC. 5. Agree with treatment of her diagnosis of HIV as this could potentially contribute to pancreatitis . We will continue to follow. Please call with any questions.
--- NOTE | 2017-07-12 14:07 | CT ---
CT DEEP BONE PERCUTANEOUS BIOPSY: HISTORY: A 37-year-old with a history of HIV, pancytopenia, rule out lymphoma, newly diagnosed HIV. FINDINGS: Informed consent was obtained from the patient. The right iliac bone was localized using CT guidance . The overlying skin was prepped and draped in the usual sterile manner. A 1% Lidocaine solution wa s used to anesthetize the overlying soft tissues. A small dermatotomy was made. An 11 gauze Juan Francisco i needle was placed using CT guidance into the right iliac bone. Initial bone marrow aspiration was attempted. Less than 1 cc of bone marrow material was aspirated. The patient has a dry tap. It was requested that we perform 2 bone biopsies as the patient does not have bone marrow within the bone m arrow cavity which is able to be aspirated. Therefore, 2 separate insertions of the 11 gauge needle were performed using CT guidance. Two separate core biopsies were obtained and sent to pathology for further workup. Pathology is pending. IMPRESSION: Successful CT-guided right iliac bone biopsy x 2. No complications encountered during the course of the exam. POS: SHAYE
[2017-07-12 15:18] LABS: Ref Lab Test Ordered HIV PHENOSENSE + INT; Reference Lab Name LABCORP
--- NOTE | 2017-07-12 16:15 | MRI ---
MRI ABDOMEN WITH AND WITHOUT IV CONTRAST AND MRCP: Date: 07/12/17 HISTORY: Pancreatitis, gallstone. FINDINGS: There is a 3.3 cm left basilar pleural based mass. This was also seen on the CT scan of 07/10/17. The liver demonstrates signal dropout on the [id number] imaging consistent with diffuse fatty infil tration. No liver mass or abnormal biliary ductal dilatation is seen. There are large gallstones. No abnormal biliary ductal dilatation is identified. No evidence of choledocholithiasis is noted. The spleen, pancreas, and adrenal glands are normal. The pancreas demonstrates normal enhancement. No abnormal pancreatic ductal dilatation is seen. There is peripancreatic inflammatory change and fluid in the adjacent to the liver and spleen and the anterior perirenal space. The abdominal aorta is of normal caliber. No portosplenic thrombosis is seen. The bone marrow signal is normal. IMPRESSION: 1. Cholelithiasis. 2. Pancreatitis. 3. No evidence of choledocholithiasis. 4. Minimal ascites. 5. Pleural based left basilar chest mass. 6. Fatty liver. POS: OFF
--- NOTE | 2017-07-12 18:13 | PRG ---
DATE OF SERVICE: 07/12/2017 SUBJECTIVE: Awake, alert, had a bone marrow biopsy today. Apparently, they could not get a bone mar row from the tap, but the biopsy is pending. She had an MRI, I believe too. Still with some abdomi nal pain. No bowel movements. She just ate something just a while ago. No headaches, no dyspnea, l ess cough. OBJECTIVE: VITAL SIGNS: Vital signs showed normal temperature, BP 92/61, pulse 79, respirations 18-20, O2 satur ation 99%. HEENT: Ocular movements conjugate. LUNGS: Symmetric air entry. HEART: S1, S2, regular rate. ABDOMEN: Soft and not distended, mild tenderness in the epigastric area. LABORATORY DATA: White cell count is at 3.3, hemoglobin 6.2, platelets 11,000 92% neutrophils. Crea tinine 0.72, sodium 135, albumin 2.2, globulin 2.6, bilirubin less than down to 1.3, AST 107, alkalin e phosphatase down to 165. Lipase at 747 and CD4 cell count is 6. ASSESSMENT AND DISCUSSION: 1. Advanced human immunodeficiency virus infection with pulmonary masses again either secondary to o pportunistic infection or to lymphoma. 2. Pancytopenia secondary to above. This is associated with acute pancreatitis. The pancreatitis c ould be secondary to the gallbladder disease with cholelithiasis or due to an opportunistic infection such as cytomegalovirus or cryptosporidium. Antiretroviral therapy will be started. Continue on Ba ctrim. Wait on assays for the above processes, may need a lung biopsy depending on results of the marg[place] ne marrow biopsy.
[2017-07-13 04:30] LABS: #Lymphocytes 0.1 thou/uL (1.20-3.40); #Monocytes 0.1 thou/uL (0.11-0.59); #Neutrophils 2.8 thou/uL (1.40-6.50); %Eosinophils 0.1 % (0.0-10.0); %Lymphocytes 4.2 % (21.0-51.0); %Monocytes 3.5 % (0.0-10.0); %Neutrophils 92.1 % (42.0-75.0); Hemoglobin 7.1 g/dL (12.0-16.0); Mean Corpuscular HGB CONC 33.5 g/dL (32.0-36.0); Mean Corpuscular Hemoglobin 30.5 pg (27.0-31.0); Mean Corpuscular Volume 91.1 fl (81.0-99.0); Mean Platelet Volume 10.6 fL (7.4-10.4); Platelet Count 55 thou/uL (130-400); RBC Distribution Width 16.6 % (11.5-14.5); Red Blood Cell (RBC) Count 2.31 mill/uL (4.20-5.40)
[2017-07-13] MEDS: Sodium Chloride 0.9% 1,000 ML IV SCH (09:51)
--- NOTE | 2017-07-13 09:51 | PRG ---
DATE OF SERVICE: 07/13/2017 Ms. Maldonado offers no new complaints. She is weak, but is walking to the bathroom. No shortness of b reath or chest pain. MRI of the abdomen shows cholelithiasis, pancreatitis, but no evidence of any c holedocholithiasis. Bone marrow results are pending. PHYSICAL EXAMINATION: VITAL SIGNS: Sats are 90% room air, pulse 80, respiration rate 18, temperature 97, blood pressure 10 4/65. CHEST: Chest revealed no wheezing or crackles. CARDIAC: Normal S1, S2. No gallops. ABDOMEN: Soft, no masses. White count 3000, H&H 7 and 21, platelet count is improved to 55. IMPRESSION: 1. Human immunodeficiency virus. 1. Pancreatitis. 2. Cholelithiasis. 3. Severe deconditioning. PLAN: Await results of the bone marrow. At this stage, no further pulmonary workup until we have re sults of the bone marrow results.
[2017-07-13] MEDS: Emtricitabine/Tenofovir 200-300 MG TAB PO SCH (09:52)
[2017-07-13] MEDS: Fluconazole 100 MG TAB PO SCH (09:52)
[2017-07-13] MEDS: Famotidine 20 MG TAB PO SCH ×2 (09:52→20:18)
[2017-07-13] MEDS: Sulfameth/Trimethoprim DS 800-160mg TAB PO SCH ×3 (09:53→20:21)
[2017-07-13] MEDS: Saccharomyces boulardii 250 MG CAP PO SCH (09:53)
[2017-07-13] MEDS: Raltegravir Potassium 400 MG TAB PO SCH ×2 (09:53→20:21)
--- NOTE | 2017-07-13 10:51 | PDOC.PN ---
- Subjective Encounter Start Date: 07/13/17 Encounter Start Time: 10:15 Subjective: no abd pain or nausea -: is amb in room, feels weak to move around - Objective Resuscitation Status: Resuscitation Status FULL:Full Resuscitation MAR Reviewed: Yes Vital Signs & Weight: Vital Signs (12 hours) Temp Pulse Resp BP BP Pulse Ox 07/13/17 08:00 97.9 F 80 18 104/69 98 07/12/17 23:48 98.4 F 82 17 93/60 98 Weight Admit Weight 120 lb 14.4 oz Weight 128 lb I&O: 07/12/17 07/13/17 07/14/17 06:59 06:59 06:59 Intake Total 1600 1724 Output Total 1000 700 Balance 600 1024 Result Diagrams: 07/13/17 04:16 07/12/17 03:55 Phys Exam - Physical Examination HEENT: PERRLA, moist MMs Neck: no JVD, supple Respiratory: no wheezing, no rales Cardiovascular: RRR, no significant murmur Gastrointestinal: soft, no distention, positive bowel sounds Musculoskeletal: no edema, pulses present Neurological: non-focal, moves all 4 limbs Psychiatric: normal affect, A&O x 3 Dx/Plan (1) Acute pancreatitis Code(s): K85.90 - ACUTE PANCREATITIS WITHOUT NECROSIS OR INFECTION, UNSP Status: Acute Qualifiers: Pancreatitis type: biliary (2) Cholelithiasis Code(s): K80.20 - CALCULUS OF GALLBLADDER W/O CHOLECYSTITIS W/O OBSTRUCTION Status: Acute Qualifiers: Cholelithiasis location: gallbladder Cholecystitis presence: without cholecystitis Biliary obstruction: without biliary obstruction Qualified Code(s): K80.20 - Calculus of gallbladder without cholecystitis without obstruction (3) Lung mass Code(s): R91.8 - OTHER NONSPECIFIC ABNORMAL FINDING OF LUNG FIELD Status: Acute (4) Metabolic acidosis Code(s): E87.2 - ACIDOSIS Status: Acute (5) Excessive weight loss Code(s): R63.4 - ABNORMAL WEIGHT LOSS Status: Acute (6) HIV (human immunodeficiency virus infection) Status: Acute Comment: new infection, pt knows diagnosis (7) Hypoalbuminemia due to protein-calorie malnutrition Code(s): E46 - UNSPECIFIED PROTEIN-CALORIE MALNUTRITION Status: Acute (8) Pancytopenia Code(s): D61.818 - OTHER PANCYTOPENIA Status: Acute Comment: severe (9) DIC (disseminated intravascular coagulation) Code(s): D65 - DISSEMINATED INTRAVASCULAR COAGULATION Status: Acute - Plan CD4 is 6, on retroviral therapy with isentress and truvada -: continue bactrim tid and steroids -: pancytopenia is stable -: had bm biopsy, was mostly dry tap, await results -: mrcp results noted, no biliary dilatation now * . Review of Systems - Medications/Allergies Allergies/Adverse Reactions: Allergies Allergy/AdvReac Type Severity Reaction Status Date / Time hydrocodone [From Vicodin] Allergy Mild Hives Verified 01/25/17 15:40 Medications: Current Medications Acetaminophen (Tylenol) 650 mg PO Q4H PRN PRN Reason: Headache/Fever or Pain Last Admin: 07/10/17 06:14 Dose: 650 mg Al Hydroxide/Mg Hydroxide (Maalox) 30 ml PO Q6H PRN PRN Reason: Heartburn or Indigestion Albuterol Sulfate (Ventolin) 2.5 mg NEB [id number] PRN PRN Reason: Wheezing Artificial Tears (Tears Renewed 15ml Bottle) 0 drop EA EYE PRN PRN PRN Reason: Dry Eyes Emtricitabine/Tenofovir (Truvada) 1 tab PO DAILY [facility] Last Admin: 07/13/17 09:52 Dose: 1 tab Famotidine (Pepcid) 20 mg PO BID [facility] Last Admin: 07/13/17 09:52 Dose: 20 mg Fentanyl (Sublimaze) 25 mcg SLOW IVP Q4H PRN PRN Reason: Pain Last Admin: 07/12/17 20:57 Dose: 25 mcg Fluconazole (Diflucan) 100 mg PO DAILY [facility] Stop: 07/19/17 09:01 Last Admin: 07/13/17 09:52 Dose: 100 mg Guaifenesin (Robitussin Sf) 200 mg PO Q4H PRN PRN Reason: Cough Sodium Chloride (Normal Saline 0.9%) 1,000 mls @ 50 mls/hr IV .Q20H [facility] Last Admin: 07/13/17 09:51 Dose: 1,000 mls Loperamide HCl (Imodium) 2 mg PO PRN PRN PRN Reason: Diarrhea/Loose Stools Loratadine (Claritin) 10 mg PO DAILYPRN PRN PRN Reason: Sinus Symptoms Magnesium Hydroxide (Milk Of Magnesium) 30 ml PO DAILYPRN PRN PRN Reason: Constipation Methylprednisolone Sodium Succinate (Solu-Medrol) 20 mg IVP Q8HR [facility] Last Admin: 07/13/17 05:14 Dose: 20 mg Mineral Oil/White Petrolatum (Eucerin Cream) 0 gm TOP BIDPRN PRN PRN Reason: Dry Skin Ondansetron HCl (Zofran Odt) 4 mg PO Q6H PRN PRN Reason: Nausea/Vomiting Last Admin: 07/09/17 05:29 Dose: 4 mg Ondansetron HCl (Zofran) 4 mg IVP Q6H PRN PRN Reason: Nausea/Vomiting Last Admin: 07/11/17 03:45 Dose: 4 mg Phenol (Chloraseptic [place] 180 Ml Bot) 0 ml PO PRN PRN PRN Reason: Sore Throat Raltegravir (Isentress) 400 mg PO BID [facility] Last Admin: 07/13/17 09:53 Dose: 400 mg Saccharomyces Boulardii (Florastor) 250 mg PO DAILY [facility] Last Admin: 07/13/17 09:53 Dose: 250 mg Senna (Senokot) 2 tab PO HSPRN PRN PRN Reason: Constipation Sodium Chloride ([place] Nasal [place] 0.65%) 0 ml EA NARE QIDPRN PRN PRN Reason: Nasal Congestion Sodium Chloride (Flush - Normal Saline) 10 ml IVF Q12HR [facility] Last Admin: 07/13/17 09:53 Dose: Not Given Sodium Chloride (Flush - Normal Saline) 10 ml IVF PRN PRN PRN Reason: Saline Flush Last Admin: 07/13/17 05:15 Dose: 10 ml Trimethoprim/Sulfamethoxazole (Bactrim Ds) 1 tab PO TID [facility] Last Admin: 07/13/17 09:53 Dose: 1 tab Zolpidem Tartrate (Ambien) 5 mg PO HSPRN PRN PRN Reason: Insomnia Last Admin: 07/10/17 21:42 Dose: 5 mg
[2017-07-13 14:20] LABS: LOG10 HIV-1 RNA 6.316 (.)
[2017-07-13 17:13] LABS: Cytoplasmic (C-ANCA) <1:20 titer (Neg:<1:20); Myeloperoxidase AutoAbs <9.0 U/mL (0.0-9.0); Perinuclear (P-ANCA) <1:20 titer (Neg:<1:20); Proteinase-3 AutoAbs Less than 3.5 U/mL (0.0-3.5)
--- NOTE | 2017-07-13 18:40 | PRG ---
DATE OF SERVICE: 07/13/2017 REASON FOR CONSULTATION: Acute pancreatitis. SUBJECTIVE: The patient states that she is feeling much better with complete resolution of her midep igastric abdominal pain. She has been n.p.o. for the last 24-48 hours and is actually now hungry. S he was able to tolerate a clear liquid diet earlier today with no return of her abdominal pain. Curr ently, denies any fevers, chills, nausea, vomiting, diarrhea, constipation, or abdominal pain. OBJECTIVE: VITAL SIGNS: Temperature 97.6, pulse 80, blood pressure 105/64, respiratory rate 18, satting 99% on room air. LABORATORY DATA: CBC with a white blood cell count of 3, hemoglobin 7.1, hematocrit 21.1, platelets 55. Serology is positive for cytomegalovirus. IMAGING DATA: No current GI imaging is available for review. ASSESSMENT AND PLAN: The patient is a 37-year-old female with past medical history of asthm a, recently diagnosed HIV and now presenting with pancytopenia, multiple pulmonary nodules and acute pancreatitis. Acute pancreatitis. The patient presented with acute onset of midepigastric abdominal pain during this hospitalization (s he did not present to the hospital with this abdominal pain) with imaging and elevated lipase consist ent with acute pancreatitis. At this point, the severity of her pancreatitis would be characterized as mild given her lack of elevation in BUN nor hemoconcentration as indicated by her repeat CBCs. Th e etiology for acute pancreatitis could be multifactorial and that it could be medication induced, in fection (HIV, CMV, and possible opportunistic infection via lung nodules could generate pancreatitis) idiopathic pancreatitis or neoplastic process. MRCP obtained on 07/12/2017 did not show any evidenc e of choledocholithiasis or gallstone pancreatitis. RECOMMENDATIONS: 1. I would recommend avoiding any potentially pancreas toxic medications during this hospitalization . 2. Would continue the patient on clear liquid diet for the next 24 hours, then advance diet to a ful l liquid diet low fat and if tolerating that particular diet, would then progress her to a low fat re gular diet. 3. If tolerating diet, further IV fluid infusion may not necessarily indicated. 4. Agree with the treatment of her HIV as this could potentially contribute to her pancreatitis give n her significantly decreased CD4 count. We will sign off at this time. Please call with any questions.
[2017-07-14] MEDS: Sodium Chloride 0.9% 1,000 ML IV SCH (04:27)
[2017-07-14 06:03] LABS: #Lymphocytes 0.3 thou/uL (1.20-3.40); #Monocytes 0.1 thou/uL (0.11-0.59); #Neutrophils 2.6 thou/uL (1.40-6.50); %Basophils 0.3 % (0.0-1.0); %Eosinophils 0.3 % (0.0-10.0); %Lymphocytes 10.1 % (21.0-51.0); %Monocytes 3.1 % (0.0-10.0); %Neutrophils 86.1 % (42.0-75.0); Hemoglobin 7.6 g/dL (12.0-16.0); Mean Corpuscular HGB CONC 32.9 g/dL (32.0-36.0); Mean Corpuscular Hemoglobin 30.7 pg (27.0-31.0); Mean Corpuscular Volume 93.4 fl (81.0-99.0); Mean Platelet Volume 12.6 fL (7.4-10.4); Platelet Count 40 thou/uL (130-400); RBC Distribution Width 17.2 % (11.5-14.5); Red Blood Cell (RBC) Count 2.48 mill/uL (4.20-5.40)
[2017-07-14] MEDS: Saccharomyces boulardii 250 MG CAP PO SCH (09:19)
[2017-07-14] MEDS: Emtricitabine/Tenofovir 200-300 MG TAB PO SCH (09:19)
[2017-07-14] MEDS: Raltegravir Potassium 400 MG TAB PO SCH ×2 (09:19→20:38)
[2017-07-14] MEDS: Fluconazole 100 MG TAB PO SCH (09:19)
[2017-07-14] MEDS: Famotidine 20 MG TAB PO SCH ×2 (09:20→20:39)
[2017-07-14] MEDS: Sulfameth/Trimethoprim DS 800-160mg TAB PO SCH ×3 (09:20→20:38)
--- NOTE | 2017-07-14 10:41 | PDOC.PN ---
- Subjective Encounter Start Date: 07/14/17 Encounter Start Time: 10:30 Subjective: no abd pain/nausea or vomiting -: had some diarrhea 3 episodes from yesterday -: is tolerating full liq diet - Objective Resuscitation Status: Resuscitation Status FULL:Full Resuscitation MAR Reviewed: Yes Vital Signs & Weight: Vital Signs (12 hours) Temp Pulse Resp BP Pulse Ox 07/14/17 08:00 97.6 F 75 20 100 07/14/17 07:54 97.6 F 75 20 108/69 100 Weight Admit Weight 120 lb 14.4 oz Weight 128 lb I&O: 07/13/17 07/14/17 07/15/17 06:59 06:59 06:59 Intake Total 1724 1560 60 Output Total 700 500 Balance 1024 1060 60 Result Diagrams: 07/14/17 05:25 07/12/17 03:55 Phys Exam - Physical Examination HEENT: PERRLA, moist MMs Neck: no JVD, supple Respiratory: no wheezing, no rales Cardiovascular: RRR, no significant murmur Gastrointestinal: soft, no distention, positive bowel sounds Musculoskeletal: no edema, pulses present Neurological: non-focal, moves all 4 limbs Psychiatric: A&O x 3 Dx/Plan (1) Pancytopenia Code(s): D61.818 - OTHER PANCYTOPENIA Status: Acute Comment: severe (2) HIV (human immunodeficiency virus infection) Status: Acute Comment: new infection, pt knows diagnosis (3) CMV (cytomegalovirus infection) Code(s): B25.9 - CYTOMEGALOVIRAL DISEASE, UNSPECIFIED Status: Acute Qualifiers: Cytomegaloviral disease type: unspecified Qualified Code(s): B25.9 - Cytomegaloviral disease, unspecified (4) Acute pancreatitis Code(s): K85.90 - ACUTE PANCREATITIS WITHOUT NECROSIS OR INFECTION, UNSP Status: Acute Qualifiers: Pancreatitis type: biliary Comment: resolving (5) Cholelithiasis Code(s): K80.20 - CALCULUS OF GALLBLADDER W/O CHOLECYSTITIS W/O OBSTRUCTION Status: Chronic Qualifiers: Cholelithiasis location: gallbladder Cholecystitis presence: without cholecystitis Biliary obstruction: without biliary obstruction Qualified Code(s): K80.20 - Calculus of gallbladder without cholecystitis without obstruction (6) Lung mass Code(s): R91.8 - OTHER NONSPECIFIC ABNORMAL FINDING OF LUNG FIELD Status: Acute (7) Metabolic acidosis Code(s): E87.2 - ACIDOSIS Status: Acute (8) Excessive weight loss Code(s): R63.4 - ABNORMAL WEIGHT LOSS Status: Acute (9) Hypoalbuminemia due to protein-calorie malnutrition Code(s): E46 - UNSPECIFIED PROTEIN-CALORIE MALNUTRITION Status: Acute (10) DIC (disseminated intravascular coagulation) Code(s): D65 - DISSEMINATED INTRAVASCULAR COAGULATION Status: Acute - Plan cmv titers are high -: currently on bactim ds tid, diflucan, isentress and truvada -: may advance diet to low fat diet -: await bone marrow biopsy (was dry tap?) -: change solumedrol to oral prednisone * . to ambulate as tolerated. Review of Systems - Medications/Allergies Allergies/Adverse Reactions: Allergies Allergy/AdvReac Type Severity Reaction Status Date / Time hydrocodone [From Vicodin] Allergy Mild Hives Verified 01/25/17 15:40 Medications: Current Medications Acetaminophen (Tylenol) 650 mg PO Q4H PRN PRN Reason: Headache/Fever or Pain Last Admin: 07/10/17 06:14 Dose: 650 mg Al Hydroxide/Mg Hydroxide (Maalox) 30 ml PO Q6H PRN PRN Reason: Heartburn or Indigestion Albuterol Sulfate (Ventolin) 2.5 mg NEB [id number] PRN PRN Reason: Wheezing Artificial Tears (Tears Renewed 15ml Bottle) 0 drop EA EYE PRN PRN PRN Reason: Dry Eyes Emtricitabine/Tenofovir (Truvada) 1 tab PO DAILY [facility] Last Admin: 07/14/17 09:19 Dose: 1 tab Famotidine (Pepcid) 20 mg PO BID [facility] Last Admin: 07/14/17 09:20 Dose: 20 mg Fentanyl (Sublimaze) 25 mcg SLOW IVP Q4H PRN PRN Reason: Pain Last Admin: 07/12/17 20:57 Dose: 25 mcg Fluconazole (Diflucan) 100 mg PO DAILY [facility] Stop: 07/19/17 09:01 Last Admin: 07/14/17 09:19 Dose: 100 mg Guaifenesin (Robitussin Sf) 200 mg PO Q4H PRN PRN Reason: Cough Sodium Chloride (Normal Saline 0.9%) 1,000 mls @ 50 mls/hr IV .Q20H [facility] Last Admin: 07/14/17 04:27 Dose: 1,000 mls Loperamide HCl (Imodium) 2 mg PO PRN PRN PRN Reason: Diarrhea/Loose Stools Loratadine (Claritin) 10 mg PO DAILYPRN PRN PRN Reason: Sinus Symptoms Magnesium Hydroxide (Milk Of Magnesium) 30 ml PO DAILYPRN PRN PRN Reason: Constipation Methylprednisolone Sodium Succinate (Solu-Medrol) 20 mg IVP Q8HR [facility] Last Admin: 07/14/17 05:05 Dose: 20 mg Mineral Oil/White Petrolatum (Eucerin Cream) 0 gm TOP BIDPRN PRN PRN Reason: Dry Skin Ondansetron HCl (Zofran Odt) 4 mg PO Q6H PRN PRN Reason: Nausea/Vomiting Last Admin: 07/09/17 05:29 Dose: 4 mg Ondansetron HCl (Zofran) 4 mg IVP Q6H PRN PRN Reason: Nausea/Vomiting Last Admin: 07/11/17 03:45 Dose: 4 mg Phenol (Chloraseptic [place] 180 Ml Bot) 0 ml PO PRN PRN PRN Reason: Sore Throat Raltegravir (Isentress) 400 mg PO BID [facility] Last Admin: 07/14/17 09:19 Dose: 400 mg Saccharomyces Boulardii (Florastor) 250 mg PO DAILY [facility] Last Admin: 07/14/17 09:19 Dose: 250 mg Senna (Senokot) 2 tab PO HSPRN PRN PRN Reason: Constipation Sodium Chloride ([place] Nasal [place] 0.65%) 0 ml EA NARE QIDPRN PRN PRN Reason: Nasal Congestion Sodium Chloride (Flush - Normal Saline) 10 ml IVF Q12HR [facility] Last Admin: 07/14/17 10:02 Dose: Not Given Sodium Chloride (Flush - Normal Saline) 10 ml IVF PRN PRN PRN Reason: Saline Flush Last Admin: 07/13/17 05:15 Dose: 10 ml Trimethoprim/Sulfamethoxazole (Bactrim Ds) 1 tab PO TID [facility] Last Admin: 07/14/17 09:20 Dose: 1 tab Zolpidem Tartrate (Ambien) 5 mg PO HSPRN PRN PRN Reason: Insomnia Last Admin: 07/10/17 21:42 Dose: 5 mg
[2017-07-14] MEDS ORDERED: predniSONE 20 MG TAB PO SCH (11:00)
--- NOTE | 2017-07-14 11:02 | PRG ---
DATE OF SERVICE: 07/14/2017 I am seeing her today. She is doing well. PHYSICAL EXAMINATION: VITAL SIGNS: Sats are 100% on room air, respirations 20, temperature 97, blood pressure 108/69. Den ies cough, wheezing or chest pain. CHEST: Chest revealed decreased breath sounds, no wheezing. CARDIAC: Normal S1-S2. No gallops. ABDOMEN: Soft. No mass. EXTREMITIES: No edema. White count of 3, H&H 7 and 23, platelet count 40. Thrush looks much better. IMPRESSION: 1. Human immunodeficiency virus. 1. Pancytopenia, stable. PLAN: Discontinue daily lab. Continue HIV therapy. Await results of the bone marrow, disposition t hereafter. I will follow.
--- NOTE | 2017-07-14 19:23 | PRG ---
DATE OF SERVICE: 07/14/2017 SUBJECTIVE: About the same. No vomiting, no respiratory symptoms or abdominal pain. PHYSICAL EXAMINATION: VITAL SIGNS: Demonstrate normal findings. O2 sat 100%. HEENT: Ocular movements conjugate. NECK: Supple. LUNGS: Symmetric air entry. HEART: S1, S2, regular rate. ABDOMEN: Soft without distention. EXTREMITIES: Moves extremities equally. LABORATORY DATA: White cell count 3.0, hemoglobin 7.6, MCV 93, platelets 40,000. Sodium 135, creati nine 0.72, bilirubin 1.3, AST 107, alkaline phosphatase 165. CMV DNA UltraQuant grew greater than 1 million copies per mL. HIV PCR 2,70,000 copies per mL. CD4 cell count 6. 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 At this poi nt, we will add valganciclovir for management disseminated CMV infection. Continue antiretroviral th erapy, Bactrim. Consider tapering corticosteroids. Bone marrow biopsy pending.
[2017-07-15] MEDS: Loperamide HCl 2 MG CAP PO PRN ×3 (07:34→20:38)
[2017-07-15] MEDS: Ondansetron ODT 4 MG TAB PO PRN (07:34)
[2017-07-15] MEDS ORDERED: predniSONE 20 MG TAB PO SCH (08:00)
[2017-07-15] MEDS: Fluconazole 100 MG TAB PO SCH (10:40)
[2017-07-15] MEDS: Saccharomyces boulardii 250 MG CAP PO SCH (10:40)
[2017-07-15] MEDS: Famotidine 20 MG TAB PO SCH ×2 (10:40→20:40)
[2017-07-15] MEDS: Sulfameth/Trimethoprim DS 800-160mg TAB PO SCH ×3 (10:41→20:37)
[2017-07-15] MEDS: Raltegravir Potassium 400 MG TAB PO SCH ×2 (10:41→20:36)
[2017-07-15] MEDS: predniSONE 5 MG TAB PO SCH (10:41)
[2017-07-15] MEDS: Emtricitabine/Tenofovir 200-300 MG TAB PO SCH (10:42)
--- NOTE | 2017-07-15 10:50 | RAD ---
CHEST 2 VIEWS: HISTORY: Pneumonia. COMPARISON: Chest radiograph 07/08/17. FINDINGS: The left perihilar opacity is similar. Mild blunting of the right lateral costophrenic sulcus. No a cute osseous abnormality. IMPRESSION: Abnormal appearance of the left perihilar region for which a CT is recommended. POS: MALATHI
--- NOTE | 2017-07-15 11:00 | PDOC.PN ---
- Subjective Encounter Start Date: 07/15/17 Encounter Start Time: 10:00 Subjective: feels weak, no diarrhea or abd pain now -: no sob - Objective Resuscitation Status: Resuscitation Status FULL:Full Resuscitation MAR Reviewed: Yes Vital Signs & Weight: Weight Admit Weight 120 lb 14.4 oz Weight 128 lb I&O: 07/14/17 07/15/17 07/16/17 06:59 06:59 06:59 Intake Total 1560 1820 Output Total 500 Balance 1060 1820 Result Diagrams: 07/14/17 05:25 07/12/17 03:55 Phys Exam - Physical Examination HEENT: PERRLA, moist MMs Neck: no JVD, supple Respiratory: no wheezing, no rales Cardiovascular: RRR, no significant murmur Gastrointestinal: soft, non-tender, positive bowel sounds Musculoskeletal: no edema, pulses present Neurological: non-focal, moves all 4 limbs Psychiatric: A&O x 3 Dx/Plan (1) Pancytopenia Code(s): D61.818 - OTHER PANCYTOPENIA Status: Acute Comment: severe (2) HIV (human immunodeficiency virus infection) Status: Acute Comment: very low CD4 of 6 (3) CMV (cytomegalovirus infection) Code(s): B25.9 - CYTOMEGALOVIRAL DISEASE, UNSPECIFIED Status: Acute Qualifiers: Cytomegaloviral disease type: unspecified Qualified Code(s): B25.9 - Cytomegaloviral disease, unspecified (4) Acute pancreatitis Code(s): K85.90 - ACUTE PANCREATITIS WITHOUT NECROSIS OR INFECTION, UNSP Status: Acute Qualifiers: Pancreatitis type: biliary Comment: resolving (5) Cholelithiasis Code(s): K80.20 - CALCULUS OF GALLBLADDER W/O CHOLECYSTITIS W/O OBSTRUCTION Status: Chronic Qualifiers: Cholelithiasis location: gallbladder Cholecystitis presence: without cholecystitis Biliary obstruction: without biliary obstruction Qualified Code(s): K80.20 - Calculus of gallbladder without cholecystitis without obstruction (6) Lung mass Code(s): R91.8 - OTHER NONSPECIFIC ABNORMAL FINDING OF LUNG FIELD Status: Acute (7) Metabolic acidosis Code(s): E87.2 - ACIDOSIS Status: Acute (8) Excessive weight loss Code(s): R63.4 - ABNORMAL WEIGHT LOSS Status: Acute Comment: sec to HIV (9) Hypoalbuminemia due to protein-calorie malnutrition Code(s): E46 - UNSPECIFIED PROTEIN-CALORIE MALNUTRITION Status: Acute (10) DIC (disseminated intravascular coagulation) Code(s): D65 - DISSEMINATED INTRAVASCULAR COAGULATION Status: Acute - Plan rehab eval -: CM for help with meds on discharge -: bone marrow no evidence of lymphoma/fungus/afb -: is on valaganciclovir, truvada and isentress -: bactrim ds tid, diflucan, prednisone 5mg x2 days and dc * . DC planning Review of Systems - Medications/Allergies Allergies/Adverse Reactions: Allergies Allergy/AdvReac Type Severity Reaction Status Date / Time hydrocodone [From Vicodin] Allergy Mild Hives Verified 01/25/17 15:40 Medications: Current Medications Acetaminophen (Tylenol) 650 mg PO Q4H PRN PRN Reason: Headache/Fever or Pain Last Admin: 07/10/17 06:14 Dose: 650 mg Al Hydroxide/Mg Hydroxide (Maalox) 30 ml PO Q6H PRN PRN Reason: Heartburn or Indigestion Albuterol Sulfate (Ventolin) 2.5 mg NEB [id number] PRN PRN Reason: Wheezing Artificial Tears (Tears Renewed 15ml Bottle) 0 drop EA EYE PRN PRN PRN Reason: Dry Eyes Emtricitabine/Tenofovir (Truvada) 1 tab PO DAILY [facility] Last Admin: 07/15/17 10:42 Dose: 1 tab Famotidine (Pepcid) 20 mg PO BID [facility] Last Admin: 07/15/17 10:40 Dose: 20 mg Fentanyl (Sublimaze) 25 mcg SLOW IVP Q4H PRN PRN Reason: Pain Last Admin: 07/12/17 20:57 Dose: 25 mcg Fluconazole (Diflucan) 100 mg PO DAILY [facility] Stop: 07/19/17 09:01 Last Admin: 07/15/17 10:40 Dose: 100 mg Guaifenesin (Robitussin Sf) 200 mg PO Q4H PRN PRN Reason: Cough Loperamide HCl (Imodium) 2 mg PO PRN PRN PRN Reason: Diarrhea/Loose Stools Last Admin: 07/15/17 07:34 Dose: 2 mg Loratadine (Claritin) 10 mg PO DAILYPRN PRN PRN Reason: Sinus Symptoms Magnesium Hydroxide (Milk Of Magnesium) 30 ml PO DAILYPRN PRN PRN Reason: Constipation Mineral Oil/White Petrolatum (Eucerin Cream) 0 gm TOP BIDPRN PRN PRN Reason: Dry Skin Ondansetron HCl (Zofran Odt) 4 mg PO Q6H PRN PRN Reason: Nausea/Vomiting Last Admin: 07/15/17 07:34 Dose: 4 mg Ondansetron HCl (Zofran) 4 mg IVP Q6H PRN PRN Reason: Nausea/Vomiting Last Admin: 07/11/17 03:45 Dose: 4 mg Phenol (Chloraseptic [place] 180 Ml Bot) 0 ml PO PRN PRN PRN Reason: Sore Throat Prednisone (Prednisone) 5 mg PO QAM-WM [facility] Last Admin: 07/15/17 10:41 Dose: 5 mg Raltegravir (Isentress) 400 mg PO BID [facility] Last Admin: 07/15/17 10:41 Dose: 400 mg Saccharomyces Boulardii (Florastor) 250 mg PO DAILY [facility] Last Admin: 07/15/17 10:40 Dose: 250 mg Senna (Senokot) 2 tab PO HSPRN PRN PRN Reason: Constipation Sodium Chloride ([place] Nasal [place] 0.65%) 0 ml EA NARE QIDPRN PRN PRN Reason: Nasal Congestion Sodium Chloride (Flush - Normal Saline) 10 ml IVF Q12HR [facility] Last Admin: 07/14/17 20:42 Dose: 10 ml Sodium Chloride (Flush - Normal Saline) 10 ml IVF PRN PRN PRN Reason: Saline Flush Last Admin: 07/13/17 05:15 Dose: 10 ml Trimethoprim/Sulfamethoxazole (Bactrim Ds) 1 tab PO TID [facility] Last Admin: 07/15/17 10:41 Dose: 1 tab Valganciclovir (Valcyte) 900 mg PO BID [facility] Last Admin: 07/15/17 10:39 Dose: 900 mg Zolpidem Tartrate (Ambien) 5 mg PO HSPRN PRN PRN Reason: Insomnia Last Admin: 07/10/17 21:42 Dose: 5 mg
--- NOTE | 2017-07-15 14:44 | PRG ---
DATE OF SERVICE: 07/15/2017 SUBJECTIVE: Esther Maldonado seen today in the hospital. She is doing quite well. OBJECTIVE: VITAL SIGNS: Afebrile, temperature 98, pulse 84, respiration 16, sats 98%, blood pressure 104/66. CHEST: With decreased breath sounds, no wheezing. CARDIAC: Normal S1, S2, no gallops. ABDOMEN: Soft, no masses. IMPRESSION: Human immunodeficiency virus, multiple lung masses, pancytopenia. PLAN: She appears to be stable on present treatment. I have ordered a chest x-ray baseline. She co uld probably be discharged home. Follow up later in the office. Consider outpatient workup of her l timmy nodules.
[2017-07-15] MEDS ORDERED: ISOVUE-370 76%-LOCM 1 ML ONE (16:22)
[2017-07-15] MEDS: Sodium Chloride 0.9% 1,000 ML IV SCH (17:02)
--- NOTE | 2017-07-15 18:05 | CT ---
CHEST CT WITH CONTRAST 07/15/17 HISTORY: Followup left upper lobe mass. Weight loss. Elevated liver enzymes. COMPARISON: 07/07/17 at [facility]. FINDINGS: There is no mediastinal mass, lymphadenopathy or hematoma. Heart size is normal. No significant peric ardial effusion. There are small bilateral pleural effusions. Redemonstration of a hypodensity in the left lower lobe with an attenuation coefficient of 34 Hounsfield units currently measuring 2.3 x 3.2 cm (previously measuring 2.4 x 4.0 cm). Previously noted nodule in the superior segment of the left lower lobe has decreased in size. Currently, this nodule measures 0.6 x 0.6 cm. There appears to be c entral cavitation. There is a nodule in the left lung apex measuring 0.9 x 0.8 cm (previously measuri ng 0.8 cm). There is interval central cavitation. There is a mass in the left upper lobe that current ly measures 2.7 x 2.3 cm (previously measuring 2.6 x 1.9 cm). No significant interval change. Stable bulla in the left upper lobe. Patchy ground glass opacities throughout the lung parenchyma are again noted. There is no pneumothorax. The visualized upper solid organs demonstrate cholelithiasis. There is fluid in the gallbladder fossa . There is perihepatic fluid. There is marked fluid adjacent to the pancreas. There is CT evidence fo r pancreatitis. Etiology is uncertain but given that there is evidence of cholelithiasis, possibility of choledocholithiasis cannot be excluded. Consider gastroenterological consultation. IMPRESSION: 1. Interval decrease in size of a mass in the superior segment left lower lobe and left lung ape x. Redemonstration of masses in the left lower lobe and left upper lobe which are grossly unchanged. 2. Inflammatory changes in the epigastric region as described above. There is evidence of pancre atitis and probable cholecystitis. The etiology is uncertain but may be due to choledocholithiasis. G I consultation is recommended. POS: SHAYE
--- NOTE | 2017-07-15 19:36 | PRG ---
DATE OF SERVICE: 07/15/2017 SUBJECTIVE: Feeling little better, eating, having some loose stools. No headaches. No visual sympt oms. No sore throat or odynophagia. No cough or chest pain. No abdominal pain anymore. OBJECTIVE: VITAL SIGNS: With normal findings. The patient is afebrile. O2 saturation is 98%. GENERAL: Appears chronically ill. HEENT: Ocular movements conjugate. Dry oral mucosa. Poor dentition. NECK: Supple. No jugular vein distention. LUNGS: Symmetric clear breath sounds. HEART: S1, S2 regular rate. ABDOMEN: Mildly distended abdomen. No tenderness on palpation. No ascites. No organomegaly. MUSCULOSKELETAL: No joint inflammatory activity. LABORATORY DATA: White cell count 3, hemoglobin 7.6, platelets 40,000. Sodium 135, creatinine 0.72, glucose 225. Bilirubin is down to 1.3. AST 107, alkaline phosphatase 165, albumin 2.2. Absolute C D4 cell count 6. CMV DNA PCR was greater than 1,000,000 copies/mL. HIV viral load was 2,070,000. ASSESSMENT AND DISCUSSION: Advanced human immunodeficiency virus, seropositive status, CD4 cell coun t below 50; disseminated cytomegalovirus infection; and pulmonary nodules. The patient also has a po sitive Fungitell assay, which is suggestive of pneumocystis infection. At this point, we will contin ue Bactrim 3 times daily, tapering dose of prednisone. Continue Truvada and Isentress and add valgan ciclovir for management of disseminated cytomegalovirus infection. Repeat CT of the chest to evaluat e progress since last week. The bone marrow biopsy did not show any evidence of lymphoma or opportun istic process. May need biopsy of the lung masses for diagnostic purposes. The differential diagnos is for those lesions is still an opportunistic process, a lymphoid aggregate, pneumocystis infection, or a lymphoma.
[2017-07-15] MEDS: Zolpidem Tartrate 5 MG TAB PO PRN (20:38)
[2017-07-16] MEDS ORDERED: Sulfameth/Trimethoprim DS 800-160mg TAB PO SCH (09:00)
[2017-07-16] MEDS: Raltegravir Potassium 400 MG TAB PO SCH ×2 (09:12→22:57)
[2017-07-16] MEDS: predniSONE 5 MG TAB PO SCH (09:13)
[2017-07-16] MEDS: Fluconazole 100 MG TAB PO SCH (09:13)
[2017-07-16] MEDS: Sulfameth/Trimethoprim DS 800-160mg TAB PO SCH ×3 (09:13→22:55)
[2017-07-16] MEDS: Famotidine 20 MG TAB PO SCH ×2 (09:13→22:58)
[2017-07-16] MEDS: Emtricitabine/Tenofovir 200-300 MG TAB PO SCH (09:13)
[2017-07-16] MEDS: Saccharomyces boulardii 250 MG CAP PO SCH (09:29)
--- NOTE | 2017-07-16 09:54 | PDOC.PN ---
- Subjective Encounter Start Date: 07/16/17 Encounter Start Time: 09:20 Subjective: no sob or abd pain - Objective Resuscitation Status: Resuscitation Status FULL:Full Resuscitation MAR Reviewed: Yes Vital Signs & Weight: Vital Signs (12 hours) Temp Pulse Resp BP Pulse Ox 07/16/17 07:56 98.4 F 107 H 18 94/58 L 99 Weight Admit Weight 120 lb 14.4 oz Weight 127 lb 1.544 oz I&O: 07/15/17 07/16/17 07/17/17 06:59 06:59 06:59 Intake Total 1820 900 Balance 1820 900 Result Diagrams: 07/14/17 05:25 07/12/17 03:55 Phys Exam - Physical Examination HEENT: PERRLA, moist MMs Neck: no JVD, supple Respiratory: no wheezing, no rales Cardiovascular: RRR, no significant murmur Gastrointestinal: soft, non-tender, positive bowel sounds Musculoskeletal: no edema, pulses present Neurological: non-focal, moves all 4 limbs Psychiatric: normal affect, A&O x 3 Dx/Plan (1) Pancytopenia Code(s): D61.818 - OTHER PANCYTOPENIA Status: Acute Comment: severe (2) HIV (human immunodeficiency virus infection) Status: Acute Comment: very low CD4 of 6 (3) CMV (cytomegalovirus infection) Code(s): B25.9 - CYTOMEGALOVIRAL DISEASE, UNSPECIFIED Status: Acute Qualifiers: Cytomegaloviral disease type: unspecified Qualified Code(s): B25.9 - Cytomegaloviral disease, unspecified (4) Acute pancreatitis Code(s): K85.90 - ACUTE PANCREATITIS WITHOUT NECROSIS OR INFECTION, UNSP Status: Acute Qualifiers: Pancreatitis type: biliary Comment: resolving (5) Cholelithiasis Code(s): K80.20 - CALCULUS OF GALLBLADDER W/O CHOLECYSTITIS W/O OBSTRUCTION Status: Chronic Qualifiers: Cholelithiasis location: gallbladder Cholecystitis presence: without cholecystitis Biliary obstruction: without biliary obstruction Qualified Code(s): K80.20 - Calculus of gallbladder without cholecystitis without obstruction (6) Lung mass Code(s): R91.8 - OTHER NONSPECIFIC ABNORMAL FINDING OF LUNG FIELD Status: Acute (7) Metabolic acidosis Code(s): E87.2 - ACIDOSIS Status: Acute (8) Excessive weight loss Code(s): R63.4 - ABNORMAL WEIGHT LOSS Status: Acute Comment: sec to HIV (9) Hypoalbuminemia due to protein-calorie malnutrition Code(s): E46 - UNSPECIFIED PROTEIN-CALORIE MALNUTRITION Status: Acute (10) DIC (disseminated intravascular coagulation) Code(s): D65 - DISSEMINATED INTRAVASCULAR COAGULATION Status: Acute - Plan hemostable -: is on insentress, truvada, bactrim ds tid, diflucan and valganciclovir -: pt counselled reg going to rehab, now agrees to go -: has very low alb and is at risk for decubitus if she goes home -: prednisone 5mg daily, dc plan per advice * . Review of Systems - Medications/Allergies Allergies/Adverse Reactions: Allergies Allergy/AdvReac Type Severity Reaction Status Date / Time hydrocodone [From Vicodin] Allergy Mild Hives Verified 01/25/17 15:40 Medications: Current Medications Acetaminophen (Tylenol) 650 mg PO Q4H PRN PRN Reason: Headache/Fever or Pain Last Admin: 07/10/17 06:14 Dose: 650 mg Al Hydroxide/Mg Hydroxide (Maalox) 30 ml PO Q6H PRN PRN Reason: Heartburn or Indigestion Albuterol Sulfate (Ventolin) 2.5 mg NEB [id number] PRN PRN Reason: Wheezing Artificial Tears (Tears Renewed 15ml Bottle) 0 drop EA EYE PRN PRN PRN Reason: Dry Eyes Emtricitabine/Tenofovir (Truvada) 1 tab PO DAILY [facility] Last Admin: 07/16/17 09:13 Dose: 1 tab Famotidine (Pepcid) 20 mg PO BID [facility] Last Admin: 07/16/17 09:13 Dose: 20 mg Fentanyl (Sublimaze) 25 mcg SLOW IVP Q4H PRN PRN Reason: Pain Last Admin: 07/12/17 20:57 Dose: 25 mcg Fluconazole (Diflucan) 100 mg PO DAILY [facility] Stop: 07/19/17 09:01 Last Admin: 07/16/17 09:13 Dose: 100 mg Guaifenesin (Robitussin Sf) 200 mg PO Q4H PRN PRN Reason: Cough Loperamide HCl (Imodium) 2 mg PO PRN PRN PRN Reason: Diarrhea/Loose Stools Last Admin: 06/07/18 20:38 Dose: 2 mg Loratadine (Claritin) 10 mg PO DAILYPRN PRN PRN Reason: Sinus Symptoms Magnesium Hydroxide (Milk Of Magnesium) 30 ml PO DAILYPRN PRN PRN Reason: Constipation Mineral Oil/White Petrolatum (Eucerin Cream) 0 gm TOP BIDPRN PRN PRN Reason: Dry Skin Ondansetron HCl (Zofran Odt) 4 mg PO Q6H PRN PRN Reason: Nausea/Vomiting Last Admin: 07/15/17 07:34 Dose: 4 mg Ondansetron HCl (Zofran) 4 mg IVP Q6H PRN PRN Reason: Nausea/Vomiting Last Admin: 07/11/17 03:45 Dose: 4 mg Phenol (Chloraseptic [place] 180 Ml Bot) 0 ml PO PRN PRN PRN Reason: Sore Throat Prednisone (Prednisone) 5 mg PO QA-[facility] Last Admin: 07/16/17 09:13 Dose: 5 mg Raltegravir (Isentress) 400 mg PO BID [facility] Last Admin: 07/16/17 09:12 Dose: 400 mg Saccharomyces Boulardii (Florastor) 250 mg PO DAILY [facility] Last Admin: 07/16/17 09:29 Dose: 250 mg Senna (Senokot) 2 tab PO HSPRN PRN PRN Reason: Constipation Sodium Chloride ([place] Nasal [place] 0.65%) 0 ml EA NARE QIDPRN PRN PRN Reason: Nasal Congestion Sodium Chloride (Flush - Normal Saline) 10 ml IVF Q12HR [facility] Last Admin: 07/16/17 09:14 Dose: 10 ml Sodium Chloride (Flush - Normal Saline) 10 ml IVF PRN PRN PRN Reason: Saline Flush Last Admin: 07/13/17 05:15 Dose: 10 ml Trimethoprim/Sulfamethoxazole (Bactrim Ds) 1 tab PO TID [facility] Last Admin: 07/16/17 09:13 Dose: 1 tab Valganciclovir (Valcyte) 900 mg PO BID [facility] Last Admin: 07/16/17 09:12 Dose: 900 mg Zolpidem Tartrate (Ambien) 5 mg PO HSPRN PRN PRN Reason: Insomnia Last Admin: 07/15/17 20:38 Dose: 5 mg
--- NOTE | 2017-07-16 09:59 | PRG ---
DATE OF SERVICE: 07/16/2017 This morning she is still weak. She is somewhat nauseated. No coughing, no difficulty breathing. To my surprise, the lung masses have decreased in size, both in the superior segment of the left lowe r lobe as well as the left lung apex. Suggesting it could be some kind of an inflammatory process of unknown etiology. PHYSICAL EXAMINATION: VITAL SIGNS: She is afebrile, temperature 98, pulse 107, 99% room air sat, respirations 18, blood pr essure is 94/58. CHEST: No wheezing or crackles. CARDIAC: Normal S1, S2. No gallops. ABDOMEN: Abdomen is soft. IMPRESSION: 1. Human immunodeficiency virus. 1. Multiple lung masses, somewhat smaller. PLAN: Continue antiretroviral medication as per ID. She can be discharged home. Pulmonary can foll ow her up in the office in a month with a chest x-ray.
--- NOTE | 2017-07-16 15:04 | PRG ---
DATE OF SERVICE: 07/16/2017 SUBJECTIVE: Sitting up, doing some physical therapy. No headaches, no dyspnea. Cough has improved. No abdominal pain. Voiding without difficulty. No diarrhea. Moves all extremities. OBJECTIVE: VITAL SIGNS: T-max 98.5, BP 94/58, pulse 107, respirations 18, O2 sat 99% on room air. GENERAL: Chronically ill appearing, but in no distress, oriented. HEENT: Ocular movements conjugate. Oral cavity normal. NECK: Supple. LUNGS: With symmetric breath sounds. No obvious crackles or wheezing. HEART: S1, S2, regular rate. ABDOMEN: Soft, mildly distended, but not tender. EXTREMITIES: Moves extremities equally. LABORATORY DATA: White cell count 3.0, hemoglobin 7.6, MCV 93, platelets 40,000, 86% neutrophils. S odium 135, creatinine 0.72, bilirubin 1.3, AST 107, alkaline phosphatase 165, albumin 2.2. The previ ous results noted. The repeat CT of chest shows that previous nodular lesions quite a few of them no w have cavitation inside. Some of them have reduced in size since the treatment was started. 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 Pancytopenia, probably secondary to the above. An alternate opportunistic infectious process is not apparent at this time. Malignancy is no t likely. The patient will continue on Isentress and Truvada plus oral valganciclovir and Bactrim at the current doses. The total duration of therapy for the pneumocystis infection will be 21 days. A fter that, the patient to be converted to Bactrim Double Strength 1 tablet Wednesday, Wednesday and ays, the valganciclovir after 2 weeks at a dose of 900 mg twice daily should be decreased to 900 mg g iven once daily for a protracted time. Once her CD4 cell count improves above certain level, then we will be able to discontinue Bactrim and Valcyte. At this moment, we will start azithromycin once we ekly for prophylaxis of Mycobacterium avium complex infection. The patient's disposition will likely include transfer to rehabilitation. It is essential that she c ontinues all the drugs mentioned above to increase the likelihood of good outcome.
[2017-07-16] MEDS: Ondansetron ODT 4 MG TAB PO PRN (15:07)
[2017-07-16] MEDS: Acetaminophen 325 MG TAB PO PRN (22:57)
[2017-07-16] MEDS: Zolpidem Tartrate 5 MG TAB PO PRN (22:58)
[2017-07-17] MEDS: Sulfameth/Trimethoprim DS 800-160mg TAB PO SCH ×3 (09:00→20:06)
[2017-07-17] MEDS: Saccharomyces boulardii 250 MG CAP PO SCH (09:01)
[2017-07-17] MEDS: Fluconazole 100 MG TAB PO SCH (09:01)
[2017-07-17] MEDS: predniSONE 5 MG TAB PO SCH (09:01)
[2017-07-17] MEDS: Famotidine 20 MG TAB PO SCH ×2 (09:01→20:06)
[2017-07-17] MEDS: Emtricitabine/Tenofovir 200-300 MG TAB PO SCH (09:02)
[2017-07-17] MEDS: Raltegravir Potassium 400 MG TAB PO SCH ×2 (09:02→20:06)
--- NOTE | 2017-07-17 10:25 | PDOC.PN ---
- Subjective Encounter Start Date: 07/17/17 Encounter Start Time: 10:15 Subjective: is awake, not fully oriented -: will advance diet, tolerating full liq diet -: is amb to restroom with help - Objective Resuscitation Status: Resuscitation Status FULL:Full Resuscitation MAR Reviewed: Yes Vital Signs & Weight: Vital Signs (12 hours) Temp Pulse Resp BP Pulse Ox 07/17/17 09:12 98.3 F 92 18 93/52 L 96 Weight Admit Weight 120 lb 14.4 oz Weight 127 lb 8.599 oz I&O: 07/16/17 07/17/17 07/18/17 06:59 06:59 06:59 Intake Total 900 150 Balance 900 150 Result Diagrams: 07/14/17 05:25 07/12/17 03:55 Phys Exam - Physical Examination HEENT: PERRLA, sclera anicteric Neck: no JVD, supple Respiratory: no wheezing, no rales Cardiovascular: RRR, no significant murmur Gastrointestinal: soft, no distention, positive bowel sounds Musculoskeletal: no edema, pulses present Neurological: non-focal, moves all 4 limbs Dx/Plan (1) Pancytopenia Code(s): D61.818 - OTHER PANCYTOPENIA Status: Acute Comment: severe (2) HIV (human immunodeficiency virus infection) Status: Acute Comment: very low CD4 of 6 (3) CMV (cytomegalovirus infection) Code(s): B25.9 - CYTOMEGALOVIRAL DISEASE, UNSPECIFIED Status: Acute Qualifiers: Cytomegaloviral disease type: unspecified Qualified Code(s): B25.9 - Cytomegaloviral disease, unspecified (4) Acute pancreatitis Code(s): K85.90 - ACUTE PANCREATITIS WITHOUT NECROSIS OR INFECTION, UNSP Status: Acute Comment: resolving, likely cmv induced (5) Cholelithiasis Code(s): K80.20 - CALCULUS OF GALLBLADDER W/O CHOLECYSTITIS W/O OBSTRUCTION Status: Chronic Qualifiers: Cholelithiasis location: gallbladder Cholecystitis presence: without cholecystitis Biliary obstruction: without biliary obstruction Qualified Code(s): K80.20 - Calculus of gallbladder without cholecystitis without obstruction (6) Lung mass Code(s): R91.8 - OTHER NONSPECIFIC ABNORMAL FINDING OF LUNG FIELD Status: Acute (7) Metabolic acidosis Code(s): E87.2 - ACIDOSIS Status: Acute (8) Excessive weight loss Code(s): R63.4 - ABNORMAL WEIGHT LOSS Status: Acute Comment: sec to HIV (9) Hypoalbuminemia due to protein-calorie malnutrition Code(s): E46 - UNSPECIFIED PROTEIN-CALORIE MALNUTRITION Status: Acute (10) DIC (disseminated intravascular coagulation) Code(s): D65 - DISSEMINATED INTRAVASCULAR COAGULATION Status: Acute - Plan awaiting rehab eval -: on valganciclovir, isentress, truvada, fluconazole -: low fat diet, encourage po intake -: low dose prednisone for 5 days and dc -: to amb as tolerated with assistance * . Review of Systems - Medications/Allergies Allergies/Adverse Reactions: Allergies Allergy/AdvReac Type Severity Reaction Status Date / Time hydrocodone [From Vicodin] Allergy Mild Hives Verified 01/25/17 15:40 Medications: Current Medications Acetaminophen (Tylenol) 650 mg PO Q4H PRN PRN Reason: Headache/Fever or Pain Last Admin: 07/16/17 22:57 Dose: 650 mg Al Hydroxide/Mg Hydroxide (Maalox) 30 ml PO Q6H PRN PRN Reason: Heartburn or Indigestion Albuterol Sulfate (Ventolin) 2.5 mg NEB [id number] PRN PRN Reason: Wheezing Artificial Tears (Tears Renewed 15ml Bottle) 0 drop EA EYE PRN PRN PRN Reason: Dry Eyes Emtricitabine/Tenofovir (Truvada) 1 tab PO DAILY [facility] Last Admin: 07/17/17 09:02 Dose: 1 tab Famotidine (Pepcid) 20 mg PO BID [facility] Last Admin: 07/17/17 09:01 Dose: 20 mg Fentanyl (Sublimaze) 25 mcg SLOW IVP Q4H PRN PRN Reason: Pain Last Admin: 07/12/17 20:57 Dose: 25 mcg Fluconazole (Diflucan) 100 mg PO DAILY [facility] Stop: 07/19/17 09:01 Last Admin: 07/17/17 09:01 Dose: 100 mg Guaifenesin (Robitussin Sf) 200 mg PO Q4H PRN PRN Reason: Cough Loperamide HCl (Imodium) 2 mg PO PRN PRN PRN Reason: Diarrhea/Loose Stools Last Admin: 07/15/17 20:38 Dose: 2 mg Loratadine (Claritin) 10 mg PO DAILYPRN PRN PRN Reason: Sinus Symptoms Magnesium Hydroxide (Milk Of Magnesium) 30 ml PO DAILYPRN PRN PRN Reason: Constipation Mineral Oil/White Petrolatum (Eucerin Cream) 0 gm TOP BIDPRN PRN PRN Reason: Dry Skin Ondansetron HCl (Zofran Odt) 4 mg PO Q6H PRN PRN Reason: Nausea/Vomiting Last Admin: 07/16/17 15:07 Dose: 4 mg Ondansetron HCl (Zofran) 4 mg IVP Q6H PRN PRN Reason: Nausea/Vomiting Last Admin: 07/11/17 03:45 Dose: 4 mg Phenol (Chloraseptic [place] 180 Ml Bot) 0 ml PO PRN PRN PRN Reason: Sore Throat Prednisone (Prednisone) 5 mg PO QA-[facility] Last Admin: 07/17/17 09:01 Dose: 5 mg Raltegravir (Isentress) 400 mg PO BID [facility] Last Admin: 07/17/17 09:02 Dose: 400 mg Saccharomyces Boulardii (Florastor) 250 mg PO DAILY [facility] Last Admin: 07/17/17 09:01 Dose: 250 mg Senna (Senokot) 2 tab PO HSPRN PRN PRN Reason: Constipation Sodium Chloride ([place] Nasal [place] 0.65%) 0 ml EA NARE QIDPRN PRN PRN Reason: Nasal Congestion Sodium Chloride (Flush - Normal Saline) 10 ml IVF Q12HR [facility] Last Admin: 07/17/17 09:03 Dose: 10 ml Sodium Chloride (Flush - Normal Saline) 10 ml IVF PRN PRN PRN Reason: Saline Flush Last Admin: 07/13/17 05:15 Dose: 10 ml Trimethoprim/Sulfamethoxazole (Bactrim Ds) 1 tab PO TID [facility] Last Admin: 07/17/17 09:00 Dose: 1 tab Valganciclovir (Valcyte) 900 mg PO BID [facility] Last Admin: 07/17/17 09:01 Dose: 900 mg Zolpidem Tartrate (Ambien) 5 mg PO HSPRN PRN PRN Reason: Insomnia Last Admin: 07/16/17 22:58 Dose: 5 mg
--- NOTE | 2017-07-17 14:06 | PRG ---
DATE OF SERVICE: 07/17/2017 SUBJECTIVE: This morning, awake, alert, responsive. No pain, no shortness of breath. OBJECTIVE: VITAL SIGNS: Temperature 98, pulse 89, sats are 96%, and blood pressure 93/52. CHEST: With no wheezing or crackles. CARDIAC: Normal S1, S2. No gallops. ABDOMEN: Soft, no masses. IMPRESSION: 1. Human immunodeficiency virus, new diagnosis. 2. Lung masses. 3. Negative bone marrow. 4. Pancytopenia. PLAN: Disposition as per Infectious Disease. We will follow.
[2017-07-17] MEDS: Loperamide HCl 2 MG CAP PO PRN (16:42)
[2017-07-18 07:37] LABS: Hemoglobin 7.4 g/dL (12.0-16.0); Mean Corpuscular HGB CONC 33.2 g/dL (32.0-36.0); Mean Corpuscular Hemoglobin 30.6 pg (27.0-31.0); Mean Corpuscular Volume 92.2 fl (81.0-99.0); Mean Platelet Volume 17.2 fL (7.4-10.4); Platelet Count 17 thou/uL (130-400); RBC Distribution Width 17.4 % (11.5-14.5); Red Blood Cell (RBC) Count 2.41 mill/uL (4.20-5.40); White Blood Cell (WBC) Count 4.6 thou/uL (4.8-10.8)
[2017-07-18 08:08] LABS: ALT (SGPT) 24 U/L (8-55); AST (SGOT) 56 U/L (5-34); Alkaline Phosphatase 141 U/L (40-150); Anion Gap 11 mmol/L (10-20); BUN (Urea Nitrogen) 10 mg/dL (7.0-18.7); Bilirubin, Total 2.4 mg/dL (0.2-1.2); Calc. Creatinine Clearance 163 mL/min (70-130); Calcium 7.9 mg/dL (7.8-10.44); Carbon Dioxide 18 mmol/L (22-29); Chloride 107 mmol/L (98-107); Estimated GFR-MDRD Greater than 90; Globulin 3.6 g/dL (2.4-3.5); Glucose 87 mg/dL (70-105); Lipase 65 U/L (8-78); Protein, Total 5.6 g/dL (6.0-8.3); Sodium 133 mmol/L (136-145)
[2017-07-18 09:08] LABS: Band 15 % (5-11); Lymphocytes 2 % (21-51); MDiff Complete? YES; Monocytes 2 % (0-10); Neutrophil 81 % (42-75); PLT Morphology Comment Appears Decreased; Platelet Clumps SLIGHT
--- NOTE | 2017-07-18 09:56 | PDOC.PN ---
- Subjective Encounter Start Date: 07/18/17 Encounter Start Time: 09:15 Subjective: no abd pain, tolerating oral diet -: is amb in room but weak -: dry cough - Objective Resuscitation Status: Resuscitation Status FULL:Full Resuscitation MAR Reviewed: Yes Vital Signs & Weight: Vital Signs (12 hours) Temp Pulse Resp BP Pulse Ox 07/18/17 08:16 98.2 F 91 20 95/56 L 98 Weight Admit Weight 120 lb 14.4 oz Weight 148 lb I&O: 07/17/17 07/18/17 07/19/17 06:59 06:59 06:59 Intake Total 150 50 Balance 150 50 Result Diagrams: 07/18/17 07:11 07/18/17 07:11 Phys Exam - Physical Examination HEENT: PERRLA lip bleeding due to low platelets Neck: no JVD, supple Respiratory: no wheezing, no rales Cardiovascular: RRR, no significant murmur Gastrointestinal: soft, non-tender, no distention, positive bowel sounds Musculoskeletal: no edema, pulses present Neurological: non-focal, moves all 4 limbs Psychiatric: A&O x 3 Dx/Plan (1) Pancytopenia Code(s): D61.818 - OTHER PANCYTOPENIA Status: Acute Comment: severe, sec to ?cmv viremia and hiv (2) HIV (human immunodeficiency virus infection) Status: Acute Comment: very low CD4 of 6 (3) CMV (cytomegalovirus infection) Code(s): B25.9 - CYTOMEGALOVIRAL DISEASE, UNSPECIFIED Status: Acute Qualifiers: Cytomegaloviral disease type: unspecified Qualified Code(s): B25.9 - Cytomegaloviral disease, unspecified (4) Acute pancreatitis Code(s): K85.90 - ACUTE PANCREATITIS WITHOUT NECROSIS OR INFECTION, UNSP Status: Acute Comment: resolving, likely cmv induced (5) Cholelithiasis Code(s): K80.20 - CALCULUS OF GALLBLADDER W/O CHOLECYSTITIS W/O OBSTRUCTION Status: Chronic Qualifiers: Cholelithiasis location: gallbladder Cholecystitis presence: without cholecystitis Biliary obstruction: without biliary obstruction Qualified Code(s): K80.20 - Calculus of gallbladder without cholecystitis without obstruction (6) Lung mass Code(s): R91.8 - OTHER NONSPECIFIC ABNORMAL FINDING OF LUNG FIELD Status: Acute Comment: ?fungal or cmv related (7) Metabolic acidosis Code(s): E87.2 - ACIDOSIS Status: Acute (8) Excessive weight loss Code(s): R63.4 - ABNORMAL WEIGHT LOSS Status: Acute Comment: sec to HIV (9) Hypoalbuminemia due to protein-calorie malnutrition Code(s): E46 - UNSPECIFIED PROTEIN-CALORIE MALNUTRITION Status: Acute (10) DIC (disseminated intravascular coagulation) Code(s): D65 - DISSEMINATED INTRAVASCULAR COAGULATION Status: Acute - Plan is on isentress and truvada -: bactrim ds tid, prednisone low dose, valganciclovir for cmv -: ensure 1 can tid, severly deconditioned needs rehab approval -: pancreatitis is slowly resolving, on solid diet now -: overall stabilizing now, needs rehab for dc plan * . Review of Systems - Medications/Allergies Allergies/Adverse Reactions: Allergies Allergy/AdvReac Type Severity Reaction Status Date / Time hydrocodone [From Vicodin] Allergy Mild Hives Verified 01/25/17 15:40 Medications: Current Medications Acetaminophen (Tylenol) 650 mg PO Q4H PRN PRN Reason: Headache/Fever or Pain Last Admin: 07/16/17 22:57 Dose: 650 mg Al Hydroxide/Mg Hydroxide (Maalox) 30 ml PO Q6H PRN PRN Reason: Heartburn or Indigestion Albuterol Sulfate (Ventolin) 2.5 mg NEB [id number] PRN PRN Reason: Wheezing Artificial Tears (Tears Renewed 15ml Bottle) 0 drop EA EYE PRN PRN PRN Reason: Dry Eyes Emtricitabine/Tenofovir (Truvada) 1 tab PO DAILY [facility] Last Admin: 07/17/17 09:02 Dose: 1 tab Famotidine (Pepcid) 20 mg PO BID [facility] Last Admin: 07/17/17 20:06 Dose: 20 mg Fentanyl (Sublimaze) 25 mcg SLOW IVP Q4H PRN PRN Reason: Pain Last Admin: 07/12/17 20:57 Dose: 25 mcg Fluconazole (Diflucan) 100 mg PO DAILY [facility] Stop: 07/23/17 09:01 Last Admin: 07/17/17 09:01 Dose: 100 mg Guaifenesin (Robitussin Sf) 200 mg PO Q4H PRN PRN Reason: Cough Loperamide HCl (Imodium) 2 mg PO PRN PRN PRN Reason: Diarrhea/Loose Stools Last Admin: 07/17/17 16:42 Dose: 2 mg Loratadine (Claritin) 10 mg PO DAILYPRN PRN PRN Reason: Sinus Symptoms Magnesium Hydroxide (Milk Of Magnesium) 30 ml PO DAILYPRN PRN PRN Reason: Constipation Mineral Oil/White Petrolatum (Eucerin Cream) 0 gm TOP BIDPRN PRN PRN Reason: Dry Skin Ondansetron HCl (Zofran Odt) 4 mg PO Q6H PRN PRN Reason: Nausea/Vomiting Last Admin: 07/16/17 15:07 Dose: 4 mg Ondansetron HCl (Zofran) 4 mg IVP Q6H PRN PRN Reason: Nausea/Vomiting Last Admin: 07/11/17 03:45 Dose: 4 mg Phenol (Chloraseptic [place] 180 Ml Bot) 0 ml PO PRN PRN PRN Reason: Sore Throat Prednisone (Prednisone) 5 mg PO QAM[facility] Last Admin: 07/17/17 09:01 Dose: 5 mg Raltegravir (Isentress) 400 mg PO BID [facility] Last Admin: 07/17/17 20:06 Dose: 400 mg Saccharomyces Boulardii (Florastor) 250 mg PO DAILY [facility] Last Admin: 07/17/17 09:01 Dose: 250 mg Senna (Senokot) 2 tab PO HSPRN PRN PRN Reason: Constipation Sodium Chloride ([place] Nasal [place] 0.65%) 0 ml EA NARE QIDPRN PRN PRN Reason: Nasal Congestion Sodium Chloride (Flush - Normal Saline) 10 ml IVF Q12HR [facility] Last Admin: 07/17/17 20:06 Dose: 10 ml Sodium Chloride (Flush - Normal Saline) 10 ml IVF PRN PRN PRN Reason: Saline Flush Last Admin: 07/13/17 05:15 Dose: 10 ml Trimethoprim/Sulfamethoxazole (Bactrim Ds) 1 tab PO TID [facility] Last Admin: 07/17/17 20:06 Dose: 1 tab Valganciclovir (Valcyte) 900 mg PO BID [facility] Last Admin: 07/17/17 20:06 Dose: 900 mg Zolpidem Tartrate (Ambien) 5 mg PO HSPRN PRN PRN Reason: Insomnia Last Admin: 07/16/17 22:58 Dose: 5 mg
[2017-07-18] MEDS: Fluconazole 100 MG TAB PO SCH (10:20)
[2017-07-18] MEDS: predniSONE 5 MG TAB PO SCH (10:20)
[2017-07-18] MEDS: Sulfameth/Trimethoprim DS 800-160mg TAB PO SCH ×3 (10:20→20:21)
[2017-07-18] MEDS: Saccharomyces boulardii 250 MG CAP PO SCH (10:20)
[2017-07-18] MEDS: Famotidine 20 MG TAB PO SCH ×2 (10:20→20:21)
[2017-07-18] MEDS: Emtricitabine/Tenofovir 200-300 MG TAB PO SCH (10:21)
[2017-07-18] MEDS: Raltegravir Potassium 400 MG TAB PO SCH ×2 (10:21→20:22)
[2017-07-18] MEDS ORDERED: predniSONE 20 MG TAB PO SCH (14:15)
--- NOTE | 2017-07-18 14:30 | PRG ---
DATE OF SERVICE: 07/18/2017 OBJECTIVE: VITAL SIGNS: This morning, temperature is 98, pulse 91, respiratory rate 20, sats 90% on room air, a nd blood pressure is 95/56. GENERAL: Denies any pain or discomfort, slight cough. CHEST: Chest reveals decreased breath sounds, no wheezing. CARDIAC: Normal S1 and S2. No gallops. ABDOMEN: Soft. No masses. LABORATORY DATA: Albumin is 2. Liver function is pretty much back to normal. Bilirubin is 2.5, sli ghtly elevated. Platelet count is 17,000, white count is 4.6, H and H 7 and 22. ASSESSMENT: 1. Severe pancytopenia. 2. Human immunodeficiency virus. 3. Pancreatitis. 4. Poor nutrition status. 5. Thrush. PLAN: Continue HIV medication. Supportive care and PT. DISPOSITION: As per Infectious Disease.
[2017-07-18] MEDS: Albuterol Sulfate 2.5 mg/3 ml Neb NEB SCH ×2 (14:37→18:26)
[2017-07-18] MEDS: Potassium Chloride 20 MEQ TAB PO SCH (18:02)
[2017-07-19] MEDS: Albuterol Sulfate 2.5 mg/3 ml Neb NEB SCH ×3 (06:32→18:29)
--- NOTE | 2017-07-19 09:14 | PDOC.PN ---
- Subjective Encounter Start Date: 07/19/17 Encounter Start Time: 11:00 Subjective: Patient feels a bit stronger this AM. Was able to walk some with PT in the -: hallway. SOB somewhat improved. - Objective Resuscitation Status: Resuscitation Status FULL:Full Resuscitation MAR Reviewed: Yes Vital Signs & Weight: Vital Signs (12 hours) Pulse Resp 07/19/17 06:32 82 12 Weight Admit Weight 120 lb 14.4 oz Weight 134 lb 4 oz I&O: 07/18/17 07/19/17 07/20/17 06:59 06:59 06:59 Intake Total 50 900 Balance 50 900 Result Diagrams: 07/18/17 07:11 07/18/17 07:11 Phys Exam - Physical Examination Constitutional: NAD HEENT: moist MMs tight breath sounds, poor effort but doesn't appear in any respiratory distress Cardiovascular: RRR, no significant murmur Gastrointestinal: soft, positive bowel sounds Neurological: non-focal, moves all 4 limbs Psychiatric: normal affect, A&O x 3 Dx/Plan (1) HIV (human immunodeficiency virus infection) Status: Acute Comment: very low CD4 of 6 (2) AIDS Status: Acute Comment: Low CD4 and PJP pneumonia, CMV. After infections clear will need prophylactic Bactrim, Valagancyclovir, and Azithromycin weekly. (3) CMV (cytomegalovirus infection) Code(s): B25.9 - CYTOMEGALOVIRAL DISEASE, UNSPECIFIED Status: Acute Qualifiers: Cytomegaloviral disease type: unspecified Qualified Code(s): B25.9 - Cytomegaloviral disease, unspecified Comment: Valgancyclovir 900mg BID for 2 weeks, then 900mg daily after that until CD4 normalizes (4) Pulmonary nodules/lesions, multiple Status: Acute Comment: Most likely PJP with nodularity and cavitation, Dr. Farmer following, will need Bactrim DS TID for 21 days followed by 1 tab qM,W,F after that until CD4 normalizes (5) Pancytopenia Code(s): D61.818 - OTHER PANCYTOPENIA Status: Acute Comment: severe, improving (6) Acute pancreatitis Code(s): K85.90 - ACUTE PANCREATITIS WITHOUT NECROSIS OR INFECTION, UNSP Status: Acute Comment: resolving, likely cmv induced (7) Cholelithiasis Code(s): K80.20 - CALCULUS OF GALLBLADDER W/O CHOLECYSTITIS W/O OBSTRUCTION Status: Chronic Qualifiers: Cholelithiasis location: gallbladder Cholecystitis presence: without cholecystitis Biliary obstruction: without biliary obstruction Qualified Code(s): K80.20 - Calculus of gallbladder without cholecystitis without obstruction (8) DIC (disseminated intravascular coagulation) Code(s): D65 - DISSEMINATED INTRAVASCULAR COAGULATION Status: Acute (9) Excessive weight loss Code(s): R63.4 - ABNORMAL WEIGHT LOSS Status: Acute Comment: sec to HIV (10) Hypoalbuminemia due to protein-calorie malnutrition Code(s): E46 - UNSPECIFIED PROTEIN-CALORIE MALNUTRITION Status: Acute - Plan cont current plan of care, continue antibiotics, PT/OT Patient moving better today and now adamant that she wants to go home. -: Mother agrees and patient's children can help her at home. Will have -: case management discuss home health vs. outpatient PT and will d/c once -: arranged. * . - Discharge Day Encounter end time: 11:20
[2017-07-19] MEDS: Potassium Chloride 20 MEQ TAB PO SCH ×2 (09:51→17:55)
[2017-07-19] MEDS: Sulfameth/Trimethoprim DS 800-160mg TAB PO SCH ×3 (09:52→20:08)
[2017-07-19] MEDS: Raltegravir Potassium 400 MG TAB PO SCH ×2 (09:52→20:08)
[2017-07-19] MEDS: Famotidine 20 MG TAB PO SCH ×2 (09:52→20:08)
[2017-07-19] MEDS: Fluconazole 100 MG TAB PO SCH (09:52)
[2017-07-19] MEDS: Saccharomyces boulardii 250 MG CAP PO SCH (09:52)
[2017-07-19] MEDS: Emtricitabine/Tenofovir 200-300 MG TAB PO SCH (09:52)
--- NOTE | 2017-07-19 11:02 | PRG ---
DATE OF SERVICE: 07/19/2017 In no distress. PHYSICAL EXAMINATION: VITAL SIGNS: Stable, temperature 97, pulse 75, respiration rate 18, sats 100% room air, blood pressu re 92/60. CHEST: Chest revealed decreased breath sounds, no wheezing. CARDIAC: Normal S1-S2. No gallops. ABDOMEN: Soft, no masses. IMPRESSION: 1. Human immunodeficiency virus with pancytopenia. 2. Associated CME infection. PLAN: Continue present medication. Pulmonary will follow the patient on an outpatient basis in a [facility] with a chest x-ray.
[2017-07-19] MEDS ORDERED: Albuterol Sulfate 2.5 mg/3 ml Neb ONE (14:32)
[2017-07-20 06:00] LABS: Hemoglobin 7.3 g/dL (12.0-16.0); Mean Corpuscular HGB CONC 33.6 g/dL (32.0-36.0); Mean Corpuscular Hemoglobin 30.9 pg (27.0-31.0); Mean Platelet Volume 14.8 fL (7.4-10.4); Platelet Count 22 thou/uL (130-400); RBC Distribution Width 17.8 % (11.5-14.5); Red Blood Cell (RBC) Count 2.37 mill/uL (4.20-5.40); White Blood Cell (WBC) Count 3.6 thou/uL (4.8-10.8)
[2017-07-20 06:12] LABS: Anion Gap 11 mmol/L (10-20); BUN (Urea Nitrogen) 10 mg/dL (7.0-18.7); Calc. Creatinine Clearance 134 mL/min (70-130); Calcium 8.4 mg/dL (7.8-10.44); Carbon Dioxide 21 mmol/L (22-29); Chloride 108 mmol/L (98-107); Estimated GFR-MDRD Greater than 90; Glucose 125 mg/dL (70-105); Potassium 4.5 mmol/L (3.5-5.1); Sodium 135 mmol/L (136-145)
[2017-07-20] MEDS: Albuterol Sulfate 2.5 mg/3 ml Neb NEB SCH (06:27)
[2017-07-20 06:36] LABS: #Monocytes 0.1 thou/uL (0.11-0.59); #Neutrophils 3.5 thou/uL (1.40-6.50); %Basophils 0.5 % (0.0-1.0); %Eosinophils 0.3 % (0.0-10.0); %Lymphocytes 0.7 % (21.0-51.0); %Monocytes 1.3 % (0.0-10.0); %Neutrophils 97.1 % (42.0-75.0); MDiff Complete? YES; Ovalocytes SLIGHT = 2-5 cells (100X) (0-1/hpf); PLT Morphology Comment Appears Decreased
--- NOTE | 2017-07-20 08:33 | DIS ---
PRIMARY CARE PHYSICIAN: Ronna Edmonds PA-C. REASON FOR ADMISSION: Multiple lung nodules and pancytopenia. DIAGNOSES AT DISCHARGE: 1. New diagnosis of human immunodeficiency virus with acquired immunodeficiency syndrome. 2. Cytomegalovirus infection. 3. 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 4. Pancytopenia. 5. Acute pancreatitis secondary to #2. 6. Cholelithiasis without cholecystitis. 7. Hypoalbuminemia due to protein calorie malnutrition. PROCEDURES: 1. CT of the chest with contrast showing a left lower lobe and left lung apex masses along with some inflammatory changes in the epigastric region consistent with pancreatitis and probably cholecystiti s. 2. MRI of the abdomen with and without contrast and MRCP showing cholelithiasis and pancreatitis, bu t no evidence of choledocholithiasis. It was demonstrated pleural based left basilar chest mass. 3. CT of abdomen and pelvis with IV contrast showing evidence for acute pancreatitis with prominent peripancreatic fluid and edema and fat stranding as well as moderate fluid with free fluid in the pel vis re-demonstrating the pleural based mass in the posterior inferior left chest. A small right pleu ral effusion, fatty changes of the liver and cholelithiasis without any over gallbladder wall thicken ing or pericholecystic fat stranding or ductal dilatation. 4. CT guided bone marrow biopsy revealing no evidence of lymphoma or acid fast bacilli. CONSULTATIONS: 1. Pulmonology, Dr. Otto. 2. Hematology/Oncology, Khushi Damon APRN, for Dr. Sy. 3. Infectious Disease, Dr. Farmer. 4. Gastroenterology, Dr. Treviño. PERTINENT LABORATORY DATA: White blood cell count 2.1 on admission, up to 4.6 at discharge. Hemoglo bin 8.3 on admission and is stable at 7.4 at discharge. INR elevated at 1.2. Liver function tests w ere abnormal with a total bilirubin 2.4, AST was mildly elevated at 56 on discharge. The rest ALT an d alkaline phosphatase were normal. Albumin was low at 2.0. The patient did have some recurrent low potassium, most recently 3.0, replaced orally. Serology showed positive for HIV antibodies with HIV RNA PCR showing 2 million copies. HIV 1 positive, serology was also positive for CMV too numerous t o count greater than 1 million , CD4 count was 6. SUMMARY OF HOSPITAL COURSE: This is a 37-year-old female without significant past medical h istory of several months with a decline in appetite and significant weight loss also noticed hair los s and skin changes and an intermittent cough without sputum. She was seen by a local physician and r eferred to Dr. Otto. Dr. Otto evaluated her, reviewed and an outpatient CT done, which showed multip le pulmonary nodules of the lung masses. She was also found to have abnormal LFTs and pancytopenia, which she was febrile to 101. The patient was sent to the emergency room and admitted to the [facility]. Dr. Otto was consulted. HIV test was done and was positive. Dr. Farmer and Dr. Sy were cons ulted as well; Dr. Farmer for HIV and Dr. Sy for possible lymphoma in the lungs. A bone marrow b iopsy was done, which ruled out lymphoma. Serologies did show a very low CD4 count consistent with a n AIDS picture and positive CMV titers. The patient did have evidence of pancreatitis on her scans. Dr. Treviño was consulted and recommended an MRCP, which did not show any specific blockages or masses , pancreatitis thought to be due to CMV and the patient was also diagnosed with Dr. Farmer with PJP pn eumonia. She was put on Bactrim double strength 3 times a day and valganciclovir 900 mg twice a day and had improvement in her symptoms. The patient was also started on Isentress and Truvada for antir etroviral therapy. She was initially very weak and had evidence of malnutrition when she was [facility]. She did improve over the course of hospitalization and was able to get up and walk some with physical therapy on the day of discharge. [facility] However, the patient was very resistant to this idea. She eventually refused and asked to go home and do outpatient physical therapy, saying she will be more comfortable at home. She stays wit h her mother along with her 2 children. Her older can take care of her and help her ambulate and mov e around. DISCHARGE MANAGEMENT: Discharged home with outpatient physical therapy. ACTIVITY: As tolerated. DIET: Regular diet. DISCHARGE MEDICATIONS: 1. Azithromycin 600 mg 2 tablets once a week, 8 tablets dispensed. 2. Truvada 1 tablet p.o. daily, 30 tablets dispensed. 3. Isentress 400 mg twice a day, 60 tablets dispensed. 4. Florastor 250 mg daily, 30 caps dispensed. 5. Bactrim double strength 1 tablet 3 times a day for another 17 days to make a total of 21 days of treatment, at which point she will go down to 1 tablet 3 times a week on Wednesday, Wednesday, and , 65 tablets dispensed. 6. Valganciclovir 900 mg twice a day for another 9 days to make up a total of 2 weeks of antivirals followed by taking 1 tablet daily after that, 39 tablets dispensed. FOLLOWUP: The patient is to follow up with Dr. Farmer in 2-3 weeks for repeat lab testing, with Dr. Zoila trimble in 1 month for repeat chest x-ray and she continued following with Dr. Rolon, her primary care tressa susharonda, as an outpatient.
[2017-07-20] MEDS: Emtricitabine/Tenofovir 200-300 MG TAB PO SCH (08:51)
[2017-07-20] MEDS: Sulfameth/Trimethoprim DS 800-160mg TAB PO SCH ×3 (08:51→20:46)
[2017-07-20] MEDS: Saccharomyces boulardii 250 MG CAP PO SCH (08:51)
[2017-07-20] MEDS: Raltegravir Potassium 400 MG TAB PO SCH ×2 (08:51→20:46)
[2017-07-20] MEDS: Famotidine 20 MG TAB PO SCH ×2 (09:04→20:46)
--- NOTE | 2017-07-20 09:51 | PRG ---
DATE OF SERVICE: 07/20/2017 She is awake, alert and responsive with no cough, no shortness of breath. PHYSICAL EXAMINATION: VITAL SIGNS: Temperature 99, pulse 110, sats 95% on room air, respirations 20, blood pressure 99/56. CHEST: Chest revealed no wheezing or crackles. CARDIAC: Normal S1-S2. No gallops. ABDOMEN: Soft, no masses. IMPRESSION: Human immunodeficiency virus with pancytopenia. PLAN: The patient will be discharged. Follow up with Infectious Disease. Pulmonary will follow at a distance.
--- NOTE | 2017-07-20 11:13 | PDOC.PN ---
- Subjective Encounter Start Date: 07/20/17 Encounter Start Time: 11:00 Subjective: f/u for advanced AIDS on current Inveness and Truvada. Also tx for PCP -: PNA with Bactrim. Feels fatigued but eating better. Voiding ok. No fever. -: Walked with PT. - Objective Resuscitation Status: Resuscitation Status FULL:Full Resuscitation MAR Reviewed: Yes Vital Signs & Weight: Vital Signs (12 hours) Temp Pulse Resp BP Pulse Ox 07/20/17 08:00 99.5 F 110 H 20 96 07/20/17 07:55 99.5 F 110 H 20 99/56 L 95 07/20/17 06:27 85 12 Weight Admit Weight 120 lb 14.4 oz Weight 129 lb I&O: 07/19/17 07/20/17 07/21/17 06:59 06:59 06:59 Intake Total 900 200 Balance 900 200 Result Diagrams: 07/20/17 05:33 07/20/17 05:33 Radiology Reviewed by me: Yes (CT chest - multiple nodules in bilat aviles) Phys Exam - Physical Examination Constitutional: NAD alert responsive HEENT: PERRLA Respiratory: no wheezing, no rales, no rhonchi, clear to auscultation bilateral Cardiovascular: RRR Gastrointestinal: soft, non-tender, no distention, positive bowel sounds Musculoskeletal: no edema, pulses present Neurological: moves all 4 limbs Psychiatric: normal affect, A&O x 3 Skin: normal turgor, cap refill <2 seconds Dx/Plan (1) AIDS Status: Acute Comment: Low CD4 and PCP pneumonia, CMV. After infections clear will need prophylactic Bactrim, Valagancyclovir, and Azithromycin weekly. ID will follow fdc (2) HIV (human immunodeficiency virus infection) Status: Acute Comment: very low CD4 of 6, see above, will need fdc monitoring (3) Acute pancreatitis Code(s): K85.90 - ACUTE PANCREATITIS WITHOUT NECROSIS OR INFECTION, UNSP Status: Acute Comment: Resolving (4) Hypoalbuminemia due to protein-calorie malnutrition Code(s): E46 - UNSPECIFIED PROTEIN-CALORIE MALNUTRITION Status: Chronic Comment: Change to regular diet, Ensure TID (5) CMV (cytomegalovirus infection) Code(s): B25.9 - CYTOMEGALOVIRAL DISEASE, UNSPECIFIED Status: Acute Qualifiers: Cytomegaloviral disease type: unspecified Qualified Code(s): B25.9 - Cytomegaloviral disease, unspecified Comment: Valgancyclovir 900mg BID for 2 weeks, then 900mg daily after that until CD4 normalizes - Plan plan discussed w/ family, continue antibiotics, PT/OT, renal social worker, out of bed/ambulate Stable currently -: Continue Inveness and Truvada -: Continue Bactrim DS -: Continue Valcyte -: Await inpt rehab approval * OOB with PT * Likely can d/c in 24h
[2017-07-20] MEDS: Ondansetron ODT 4 MG TAB PO PRN (13:08)
[2017-07-20] MEDS: Acetaminophen 325 MG TAB PO PRN (20:47)
[2017-07-21] MEDS: Acetaminophen 325 MG TAB PO PRN ×2 (07:37→23:46)
[2017-07-21] MEDS: Sulfameth/Trimethoprim DS 800-160mg TAB PO SCH ×3 (09:35→21:57)
[2017-07-21] MEDS: Raltegravir Potassium 400 MG TAB PO SCH ×2 (09:35→21:57)
[2017-07-21] MEDS: Famotidine 20 MG TAB PO SCH ×2 (09:35→21:57)
[2017-07-21] MEDS: Emtricitabine/Tenofovir 200-300 MG TAB PO SCH (09:35)
[2017-07-21] MEDS: Saccharomyces boulardii 250 MG CAP PO SCH (09:35)
[2017-07-21 12:36] VITALS: BMI 26.9
[2017-07-21] MEDS ORDERED: predniSONE 20 MG TAB PO SCH (13:15)
--- NOTE | 2017-07-21 13:19 | PDOC.PN ---
- Subjective Encounter Start Date: 07/21/17 Encounter Start Time: 13:05 Subjective: f/u for AIDS, CMV viremia and PCP PNA. Nsg reports temp 102.8 F today. -: No increased SOB, cough. No prominent diarrhea. Remains on Bactrim, -: Truvada, Isentress, Valcyte. - Objective Resuscitation Status: Resuscitation Status FULL:Full Resuscitation MAR Reviewed: Yes Vital Signs & Weight: Vital Signs (12 hours) Temp Pulse Resp BP BP Pulse Ox 07/21/17 11:52 98.4 F 89 16 92/56 L 96 07/21/17 09:47 99.6 F 07/21/17 08:00 102.8 F H 107 H 20 92 L 07/21/17 07:36 102.8 F H 107 H 20 92/63 92 L 07/21/17 03:38 99.0 F 92 16 94/67 95 Weight Admit Weight 120 lb 14.4 oz Weight 124 lb 8 oz I&O: 07/20/17 07/21/17 07/22/17 06:59 06:59 06:59 Intake Total 200 1070 Balance 200 1070 Result Diagrams: 07/20/17 05:33 07/20/17 05:33 Phys Exam - Physical Examination Constitutional: NAD alert, talkative HEENT: PERRLA, oral pharynx no lesions Neck: no nodes, no JVD, supple, full ROM Respiratory: no wheezing, no rales, no rhonchi, clear to auscultation bilateral S1, S2 Cardiovascular: RRR, no significant murmur, no rub, gallop Gastrointestinal: soft, non-tender, no distention, positive bowel sounds Musculoskeletal: no edema, pulses present Neurological: non-focal, normal sensation, moves all 4 limbs Psychiatric: normal affect, A&O x 3 Skin: no rash, normal turgor, cap refill <2 seconds Dx/Plan (1) AIDS Status: Acute Comment: Low CD4 and PCP pneumonia, CMV. After infections clear will need prophylactic Bactrim, Valagancyclovir, and Azithromycin weekly. ID will follow senior living (2) HIV (human immunodeficiency virus infection) Status: Acute Comment: very low CD4 of 6, see above, will need senior living monitoring, continue Truvada and Isentress (3) Acute pancreatitis Code(s): K85.90 - ACUTE PANCREATITIS WITHOUT NECROSIS OR INFECTION, UNSP Status: Acute Comment: Resolving (4) CMV (cytomegalovirus infection) Code(s): B25.9 - CYTOMEGALOVIRAL DISEASE, UNSPECIFIED Status: Acute Qualifiers: Cytomegaloviral disease type: unspecified Qualified Code(s): B25.9 - Cytomegaloviral disease, unspecified Comment: Valgancyclovir 900mg BID for 2 weeks, then 900mg daily after that until CD4 normalizes (5) Hypoalbuminemia due to protein-calorie malnutrition Code(s): E46 - UNSPECIFIED PROTEIN-CALORIE MALNUTRITION Status: Chronic Comment: Change to regular diet, Ensure TID (6) Pancytopenia Code(s): D61.818 - OTHER PANCYTOPENIA Status: Acute Comment: Secondary to advanced AIDS and CMV, serial monitoring, transfuse platelets and PRBC's as clinically indicated - Plan continue antibiotics, PT/OT, social services specialist, out of bed/ambulate, DVT proph w/ SCDs Stable overall -: Start Prednisone 20mg daily x 1 week then 10mg daily x 1 week -: Plan for LP with fluroscopy to r/o cryptococcal infection -: Continue Isentress and Truvada -: Continue Bactrim * CM assisting with inpt rehab coordination * PT for mobilization
[2017-07-21] MEDS: Loperamide HCl 2 MG CAP PO PRN (17:43)
[2017-07-21] MEDS: Ondansetron ODT 4 MG TAB PO PRN ×2 (18:33→22:17)
[2017-07-21] MEDS: Zolpidem Tartrate 5 MG TAB PO PRN (22:01)
[2017-07-22] MEDS ORDERED: predniSONE 20 MG TAB PO SCH (08:00)
[2017-07-22] MEDS: Emtricitabine/Tenofovir 200-300 MG TAB PO SCH (08:41)
[2017-07-22] MEDS: Saccharomyces boulardii 250 MG CAP PO SCH (08:41)
[2017-07-22] MEDS: Sulfameth/Trimethoprim DS 800-160mg TAB PO SCH ×2 (08:41→14:53)
[2017-07-22] MEDS: Raltegravir Potassium 400 MG TAB PO SCH (08:41)
[2017-07-22] MEDS: Famotidine 20 MG TAB PO SCH (08:41)
[2017-07-22] MEDS: Ondansetron ODT 4 MG TAB PO PRN (10:14)
[2017-07-22 11:59] VITALS: BP 96/56; TEMP 98.1
--- NOTE | 2017-07-22 13:32 | PRG ---
DATE OF SERVICE: 07/21/2017 Ms. Maldonado is status quo pretty much except for one transient elevation of temperature yesterday. No headaches, less cough, no chest pain, no abdominal pain or diarrhea. No genitourinary symptoms. Sh jasen is able to sit up and stand up and walk for a short distance. PHYSICAL EXAMINATION: VITAL SIGNS: T-max 102.5 at 11:00 p.m. yesterday and BP 96/56, pulse 89. GENERAL: Chronically ill appearing, but in no distress, actually appears better than on arrival, kirk ented, somewhat listless and apathetic. HEENT: Ocular movements conjugate. Oral cavity normal. NECK: Supple. LUNGS: Symmetric clear breath sounds. HEART: S1, S2, regular rate. ABDOMEN: Soft, not distended or tender. EXTREMITIES: Strength in upper and lower extremities 5/5. Cognitive function appears to be intact. LABORATORY DATA: White cell count 3.6, hemoglobin 7.3, platelets 22,000. Sodium 135, creatinine 0.5 2, bilirubin 2.4, AST 56, ALT 24. 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 Lymphoma is unlikely. [employer] infection is not ruled out, but she is totally awake. There would be risk s associated with doing a spinal tap. Therefore at this point in time we will forego the test. Cont inue antiretroviral therapy with Truvada and Isentress, prednisone 20 mg daily, Bactrim 3 times daily for a total of 21 days and then transitioned to 3 times per week prophylaxis. Continue CMV treatmen t with Valcyte for 2 weeks with 900 mg twice daily and then 900 mg daily a few months. [place] [facility] [place] soon as she is approved.
--- NOTE | 2017-07-22 14:11 | DIS ---
DATE OF ADMISSION: 07/08/2017 DATE OF DISCHARGE: 07/22/2017 DISCHARGE DIAGNOSES: 1. Acquired immunodeficiency syndrome secondary to #2. 2. Human immunodeficiency virus infection. 3. Cytomegalovirus viremia. 4. Moderate protein calorie malnutrition. 5. Pancytopenia secondary to #1. 6. Chronic normocytic anemia. 7. Acute pancreatitis, nonobstructive, resolved. CONSULTATIONS: 1. Dr. Derek Farmer with Infectious Disease Service. 2. Dr. Otto with Hematology Service. 3. Dr. Treviño with GI Service. PERTINENT LABORATORY DATA AND X-RAY FINDINGS: Potassium ranged between 3.0-4.9, AST ranged between 5 6-144, ALT ranged between 13-26. Serum ammonia level 16. CRP 3.61. Albumin ranged between 2.0-2.3. Lipase range between 65-837. Serum cortisol level 8.70. CBC showed a white blood cell count rangi ng between 1.3-4.6, hemoglobin ranged between 6.2-8.3, platelet count ranged between 11-55. ESR 69. CHAUNCEY screen negative. Absolute CD4 count 6. Hepatitis A, B, and C panel negative. CMV DNA alter qu antitative greater than 1 million copies. HIV 1 antibody positive for positive A. HIV-1 RNA PCR gre ater than 2 million copies. Blood cultures x2 from 07/08/2017 showed no growth at 5 days. Serum cry ptococcal antigen dated 07/09/2017 negative. Urine culture dated 07/08/2017 showed no growth at [address] of the abdomen and pelvis dated 07/10/2017 showed acute pancreatitis with prominent peripan creatic fluid and edema. A 2.5 x 3.3 cm pleural based mass in the posteroinferior left chest. Lashell lithiasis without obstructive process. Abdominal MRI dated 07/12/2017 showed cholelithiasis and panc reatitis without evidence of choledocholithiasis. Pleural based left basilar chest mass noted. CT o f the chest dated 07/15/2017 showed interval decrease in size of mass in the superior segment of left lower lobe and left lung apex. Evidence of pancreatitis and cholecystitis noted. HOSPITAL COURSE: The patient was initially admitted after presenting with multitude of complaints in cluding general weakness, weight loss, fever, pulmonary nodules and hair loss. The patient underwent extensive evaluation including evaluation by Infectious Disease Service after patient was discovered with HIV 1 positive A. The patient was initiated on Truvada and Isentress in addition to treatment for CMV after CMV studies were positive for viremia. The patient was placed on Valcyte and treated a t recommendation from Infectious Disease Service. The patient initially was treated for potential se psis picture with broad spectrum antibiotic coverage after initial CT imaging of the chest revealed p ulmonary nodules. After confirmation of HIV, attention was turned toward opportunistic infections ru ling out cryptococcal involvement. The patient's clinical course was complicated with acute pancreat itis, likely of CMV origin with symptomatic and supportive management and spontaneous resolution with supportive care. The patient was also treated with Bactrim double strength in addition to Valcyte a nd antiretroviral therapy. The patient was slow to clinically improve, remaining generally weak, nee ding physical therapy for assistance to sit up and stand at the bedside. The patient was also noted with moderate protein malnutrition, treated with regular diet as well as Ensure t.i.d. Due to manda ramos's overall new diagnosis of AIDS/HIV in addition to severe deconditioning and malnutrition, the ratna ent was deemed an appropriate candidate for inpatient rehabilitation. The patient has been approved and we will transfer to [facility] on 07/22/2017. I have discussed at [facility] the clinical findings as well as potential prognosis and long-term treatment plans. The patient a nd mother verbalized understanding and agreement and ready for discharge on 07/22/2017. DISCHARGE MEDICATIONS: 1. Azithromycin 1200 mg p.o. q. 7 days x8 weeks. 2. Tessalon Perles 100 mg p.o. t.i.d. p.r.n. 3. Truvada 200/300 mg 1 tab p.o. daily. 4. Isentress 400 mg p.o. b.i.d. 5. Zofran 4 mg p.o. q.6 hours p.r.n. nausea, vomiting. 6. Prednisone 20 mg p.o. daily x7 days, followed by 10 mg p.o. daily x7 days. 7. Florastor 250 mg p.o. daily. 8. Bactrim DS 1 tablet p.o. t.i.d. x17 days, followed by 1 tab 3 times per week thereafter. 9. Valcyte 900 mg 1 tab p.o. b.i.d. FOLLOWUP: The patient may follow up with her primary care provider, Ronna Edmonds. Patient will foll ow up with Dr. Derek Farmer within 2-3 weeks after discharge. The patient will follow up with Dr. Zoila trimble with Pulmonology Service and to call his office for appointment time and date. CONDITION ON DISCHARGE: Guarded. ACTIVITY: Ad aydee. Rolling walker with contact guard assistance and fall risk precautions. DIET: Regular. CODE STATUS: FULL. DISPOSITION: [facility] on 07/22/2017. Total time preparing and coordinating discharge is 40 minutes.
[2017-07-26] MEDS ORDERED: Azithromycin 200 MG/5 ML Oral Suspension PO SCH (09:00)
== END 2017-07-22 17:40 | DRG 974 ==
LOC: ERS 12:37 → ONC 13:55
PROVIDERS: ADMIT Internal Medicine; ATTEND Internal Medicine
PROC: 07DR3ZX Extraction of Iliac Bone Marrow, Percutaneous Approach, Diagnostic (ICD-10-PCS; principal; 2017-07-12)
DX: B20 Human immunodeficiency virus [HIV] disease (principal); D65 Disseminated intravascular coagulation [defibrination syndrome]; B59 Pneumocystosis; A00-B99 Certain infectious and parasitic diseases; E87.1 Hypo-osmolality and hyponatremia; E44.0 Moderate protein-calorie malnutrition; E87.2 Acidosis; Z68.26 Body mass index [BMI] 26.0-26.9, adult; D64.9 Anemia, unspecified; K80.20 Calculus of gallbladder without cholecystitis without obstruction; E87.6 Hypokalemia; Z88.5 Allergy status to narcotic agent
CPT/HCPCS: 20225; 36415; 36430; 71046; 71260; 74177; 74183; 77002; 80048; 80053; 80074; 81001; 81025; 82140; 82533; 82595; 82787; 83520; 83605; 83615; 83690; 83735; 84100; 84484; 85025; 85048; 85097; 85610; 85652; 85730; 86038; 86140; 86225; 86256; 86361; 86701; 86702; 86780; 86850; 86900; 86901; 87040; 87086; 87385; 87389; 87449; 87497; 87536; 87899; 88184; 88305; 88311; 88313; 88341; 88342; 88365; 94640; 96365; 96368; A4216; G8978-GP-CK; G8979-GP-CI; G8987-GO-CL; G8988-GO-CI; J1642; J1956; J2250; J2405; J2543; J2920; J3010; J3370; J7050; J7506; J7611; J8499; P9016; P9035; P9047; Q0162

== ENCOUNTER 2017-09-12 15:27 | Inpatient (IN) | payer BC, OTHER ==
[2017-09-12] MEDS ORDERED: Scopolamine 1.5 mg/72 hour Patch TOP PRN (15:51)
[2017-09-12] MEDS ORDERED: Lorazepam 2 MG/ML VIAL SLOW IVP PRN (15:51)
[2017-09-12 16:57] VITALS: BMI 22.7
[2017-09-12] MEDS: Ketorolac Tromethamine 30 MG/ML VIAL IVP PRN ×2 (17:55→22:34)
[2017-09-13 07:56] VITALS: TEMP 99
[2017-09-13] MEDS ORDERED: Morphine 10 MG/ML VIAL SLOW IVP PRN (09:45)
--- NOTE | 2017-09-15 12:45 | DS ---
A very pleasant 37-year-old female who was admitted for advanced HIV with P[employer] lymphoma and disseminat ed CMV infection, on 09/13/2017 at 7:35 p.m. on hospice service. The patient's [place] [facility] [place]. No complications were reported cause of was advanced HIV with multiple complic ations. This is a stat discharge summary.
== END 2017-09-14 00:20 | disposition expired | DRG 951 ==
LOC: 2SE 15:27 → EEVIPCON 15:27
PROVIDERS: ADMIT Internal Medicine Nephrology; ATTEND Internal Medicine Nephrology
DX: Z51.5 Encounter for palliative care (principal); B20 Human immunodeficiency virus [HIV] disease; E43 Unspecified severe protein-calorie malnutrition; A41.9 Sepsis, unspecified organism; B25.8 Other cytomegaloviral diseases; R64 Cachexia; J45.909 Unspecified asthma, uncomplicated; Z66 Do not resuscitate; R60.9 Edema, unspecified; R62.7 Adult failure to thrive; Z68.22 Body mass index [BMI] 22.0-22.9, adult; R91.8 Other nonspecific abnormal finding of lung field; L89.302 Pressure ulcer of unspecified buttock, stage 2; Z88.5 Allergy status to narcotic agent; Z79.899 Other long term (current) drug therapy
CPT/HCPCS: J1885